=== PATIENT | female | born 1995 | race Caucasian/White ===

== ENCOUNTER 2018-05-27 12:44 | Emergency (ER) | payer BC, OTHER ==
[2018-05-27 13:09] VITALS: BP 126/88
--- NOTE | 2018-05-27 13:32 | UC ---
Respiratory Complaint HPI - HPI Summary HPI Summary: This is Sue jacob, documenting for attending Joseph Arriaga M.D. Pt is a 23 y/o F who presents to ED with a CC of HOLGUIN. HOLGUIN is located in the occipital region with radiation into the neck and is characterized as pressure. On triage, pain is severe ranked 8/10. Sx aggravated by movement and opening her mouth, alleviated by nothing. Notes back pain this morning which is now resolved and she suspected it was secondary to sleeping wrong. Additionally c/o chills and dizziness when she turns her head a certain way. Pt reports that she has been sick for about 9 days, with symptoms consisting of a sore throat, rhinorrhea, cough, and nasal congestion. Denies abdominal pain, dysuria. Her children were ill for a few days, though they are now improved. - History of Current Complaint Chief Complaint: UCRespiratory Stated Complaint: CONGESTED,DIZZY Time Seen by Provider: 05/27/18 13:23 Hx Obtained From: Patient Hx Last Menstrual Period: now Onset/Duration: Lasting Days - 9 days, Still Present Severity Currently: Severe Pain Intensity: 8 Pain Scale Used: 0-10 Numeric - Allergies/Home Medications Allergies/Adverse Reactions: Allergies Allergy/AdvReac Type Severity Reaction Status Date / Time azithromycin Allergy Swelling Verified 05/27/18 13:10 tape Allergy Itching Uncoded 05/27/18 13:10 Home Medications: Home Medications busPIRone TAB* [Buspar TAB*] 1 tab PO BID 05/27/18 [History Confirmed 05/27/18] PMH/Surg Hx/FS Hx/Imm Hx Respiratory History: Asthma Psychological History: Anxiety - Surgical History Surgical History: None - Social History Alcohol Use: Occasionally Substance Use Type: None Smoking Status (MU): Never Smoked Tobacco Have You Smoked in the Last Year: No - Immunization History Most Recent Influenza Vaccination: 10/25 Most Recent Tetanus Shot: 11/2012 Most Recent Pneumonia Vaccination: none Physical Exam Vital Signs: Initial Vital Signs Temp 98.8 F 05/27/18 13:06 Pulse 93 05/27/18 13:06 Resp 18 05/27/18 13:06 BP 126/88 05/27/18 13:06 Pulse Ox 100 05/27/18 13:06 Diagnostic Evaluation - Laboratory O2 Sat by Pulse Oximetry: 100 Discharge - Discharge Plan Referrals: Caitlin Timmons PA [Primary Care Provider] -
--- NOTE | 2018-05-27 13:34 | UC ---
Headache HPI - HPI Summary HPI Summary: This is Sue jacob, documenting for attending Joseph Arriaga M.D. Pt is a 23 y/o F who presents to ED with a CC of HOLGUIN for 4 days. HOLGUIN is located in the occipital region with radiation into the neck and is characterized as pressure. On triage, pain is severe ranked 8/10. Sx aggravated by movement and opening her mouth, alleviated by nothing. Notes back pain this morning which is now resolved and she suspected it was secondary to sleeping wrong. Additionally c/o chills and dizziness when she turns her head a certain way as well as fever , though none today. Pt reports that she has been sick for about 9 days, with symptoms consisting of a sore throat, rhinorrhea, cough, and nasal congestion. Denies abdominal pain, dysuria. Her children were ill for a few days, though they are now improved. - History Of Current Complaint Chief Complaint: UCRespiratory Stated Complaint: CONGESTED,DIZZY Time Seen by Provider: 05/27/18 13:23 Hx Obtained From: Patient Hx Last Menstrual Period: now Onset/Duration: Lasting Days - 4 days, Still Present Onset Of Symptoms: Still Present Currently Pain Is: Severe Pain Intensity: 8 Pain Scale Used: 0-10 Numeric Character: Pressure Location of Headache: Occipital Aggravating Factor(s): Other - Movement, opening mouth Allevating Factor(s): Nothing Associated Signs And Symptoms: Positive: Dizziness, Fever, Neck Pain - Allergies/Home Medications Allergies/Adverse Reactions: Allergies Allergy/AdvReac Type Severity Reaction Status Date / Time azithromycin Allergy Swelling Verified 05/27/18 13:10 tape Allergy Itching Uncoded 05/27/18 13:10 Home Medications: Home Medications busPIRone TAB* [Buspar TAB*] 1 tab PO BID 05/27/18 [History Confirmed 05/27/18] PMH/Surg Hx/FS Hx/Imm Hx Respiratory History: Asthma Psychological History: Anxiety - Surgical History Surgical History: None - Family History Known Family History: Positive: Other - DVT, Leukemia - Social History Alcohol Use: Occasionally Substance Use Type: None Smoking Status (MU): Never Smoked Tobacco Have You Smoked in the Last Year: No - Immunization History Most Recent Influenza Vaccination: 10/25 Most Recent Tetanus Shot: 11/2012 Most Recent Pneumonia Vaccination: none Review of Systems Constitutional: Fever, Chills Skin: Negative Eyes: Negative ENT: Sore Throat, Nasal Discharge, Sinus Congestion Respiratory: Cough Cardiovascular: Negative Gastrointestinal: Negative Genitourinary: Negative Motor: Negative Neurovascular: Negative Musculoskeletal: Other: - Back pain Neurological: Headache, Other - Dizziness Psychological: Negative All Other Systems Reviewed And Are Negative: Yes - Comments Additional Review of Systems Comments: NEGATIVE: Abdominal pain, dysuria Physical Exam - Summary Physical Exam Summary: General: mildly ill-appearing, mild to moderate pain distress Skin: warm, color reflects adequate perfusion, dry Head: normal Eyes: EOMI, STACIA ENT: TM normal bilaterally, posterior pharynx is mildly erythematous with no sores, has a cold sore on her upper lip Neck: rigid, nontender Respiratory: CTA, breath sounds present Cardiovascular: RRR Musculoskeletal: normal, strength/ROM intact Neurological: sensory/motor intact, A&O x3 Psychological: affect/mood appropriate Triage Information Reviewed: Yes Vital Signs: Initial Vital Signs Temp 98.8 F 05/27/18 13:06 Pulse 93 05/27/18 13:06 Resp 18 05/27/18 13:06 BP 126/88 05/27/18 13:06 Pulse Ox 100 05/27/18 13:06 Vital Signs Reviewed: Yes Headache Course/Dx - Course Course Of Treatment: Medications reviewed. Allergies noted. RECOMMENDED FURTHER EVALUATION IN THE EMERGENCY DEPARTMENT NOW PRIMARILY DUE TO THE POTENTIAL FOR MENINGITIS. - Differential Dx/Diagnosis Provider Diagnoses: HEADACHE. STIFF NECK. RECENT FEVERS Discharge - Sign-Out/Discharge Documenting (check all that apply): Patient Departure - Discharge - Discharge Plan Condition: Stable Disposition: HOME-RECOMMEND TO ED Patient Education Materials: Fever in Adults (ED), Acute Headache (ED), Neck Pain (ED) Referrals: Caitlin Timmons PA [Primary Care Provider] - Additional Instructions: GO DIRECTLY TO THE EMERGENCY DEPARTMENT FOR FURTHER EVALUATION OF YOUR HEADACHE , NECK PAIN AND FEVERS. - Billing Disposition and Condition Condition: STABLE Disposition: Home-Recommend to ED
== END 2018-05-27 13:39 | disposition home health service (06) ==
LOC: UCEAST 12:44
DX: R51 Headache (principal); F41.9 Anxiety disorder, unspecified; M43.6 Torticollis; R50.9 Fever, unspecified; J45.909 Unspecified asthma, uncomplicated; Z91.048 Other nonmedicinal substance allergy status; Z88.1 Allergy status to other antibiotic agents
CPT/HCPCS: 99212; G0463

== ENCOUNTER 2018-05-27 14:49 | Emergency (ER) | payer BC ==
[2018-05-27] MEDS ORDERED: NS 0.9% 1000 ML* 1,000 ML IV ONE (15:20)
[2018-05-27] MEDS ORDERED: diPHENhydraMINE IV* 50 MG/ML 1 ml VIAL (BENADRYL) IV ONE (15:20)
[2018-05-27] MEDS ORDERED: Ketorolac INJ* 30 MG/ML 1 ML VIAL IV PUSH ONE (15:20)
[2018-05-27] MEDS ORDERED: Metoclopramide IV* 5 MG/ML 2 ML VIAL IV ONE (15:20)
--- NOTE | 2018-05-27 15:57 | ED ---
Complex/Multi-Sys Presentation - HPI Summary HPI Summary: This is Johnnie jcaob documenting for attending Dr. James Yepez MD. This patient is a 23 year old F presenting to [facility] accompanied by her family c/ o a general illness that began 9 days ago. The patient rates the pain 9/10 in severity. Patient reports head pressure, neck pain, back pain, fever, nasal congestion, and dizziness/blurry vision with head movement. Patient denies urinary sx, ABD pain, n/v/d, cough, and sore throat. Pt is currently menstruating - History Of Current Complaint Chief Complaint: EDGeneral Time Seen by Provider: 05/27/18 15:19 Hx Obtained From: Patient Onset/Duration: Lasting Days, Still Present Timing: Constant Severity Currently: Mild Severity Initially: Moderate Associated Signs And Symptoms: Positive: Other - head pressure, neck pain, back pain, fever, nasal congestion, and dizziness/blurry vision with head movement. - Allergies/Home Medications Allergies/Adverse Reactions: Allergies Allergy/AdvReac Type Severity Reaction Status Date / Time azithromycin Allergy Swelling Verified 05/27/18 15:10 tape Allergy Itching Uncoded 05/27/18 15:10 Home Medications: Home Medications Norgestimate-Ethinyl Estradiol [Tri-Sprintec Tablet] 1 tab PO DAILY 05/27/18 [ History Confirmed 05/27/18] PMH/Surg Hx/FS Hx/Imm Hx Endocrine/Hematology History: Denies: Hx Diabetes, Hx Systemic Lupus Erythematosus, Hx Thyroid Disease, Hx Coagulopothy Cardiovascular History: Denies: Hx Hypertension Respiratory History: Reports: Hx Asthma Denies: Hx Chronic Obstructive Pulmonary Disease (COPD) GI History: Denies: Hx Ulcer Neurological History: Reports: Hx Headaches Denies: Hx CVA, Hx Developmental Delay, Hx Transient Ischemic Attacks (TIA), Hx CVP Infectious Disease History: No Infectious Disease History: Denies: Hx Hepatitis, Hx Human Immunodeficiency Virus (HIV), History Other Infectious Disease, Traveled Outside the [place] in Last 30 Days - Family History Known Family History: Positive: Diabetes, Other - DVT, Leukemia - Social History Occupation: Employed Full-time Lives: With Family Alcohol Use: Occasionally Substance Use Type: Reports: None Smoking Status (MU): Never Smoked Tobacco Have You Smoked in the Last Year: No Review of Systems Positive: Fever Positive: Blurred Vision ENT: Other - congestion Negative: Sore Throat Negative: Cough Negative: Abdominal Pain, Vomiting, Diarrhea, Nausea Positive: no symptoms reported Musculoskeletal: Other - neck pain and back pain Neurological: Other - dizziness Positive: Headache - pressure All Other Systems Reviewed And Are Negative: Yes Physical Exam - Summary Physical Exam Summary: Appearance: Well appearing, no pain distress Skin: cold sore on the left upper lip Head/face: normal Eyes: EOMI, STACIA ENT: normal Neck: no nuchal rigidity, there are some meningeal signs, no adenopathy Respiratory: CTA, breath sounds present Cardiovascular: tachycardia but regular, pulses symmetrical Abdomen: non-tender, soft Bowel Sounds: present Musculoskeletal: no nuchal rigidity, there are some meningeal signs Neuro: normal, sensory motor intact, A&Ox3 Triage Information Reviewed: Yes Vital Signs On Initial Exam: Initial Vitals Temp Pulse Resp BP Pulse Ox 100.0 F 103 20 134/87 93 05/27/18 14:50 05/27/18 14:50 05/27/18 14:50 05/27/18 14:50 05/27/18 14:50 Vital Signs Reviewed: Yes Procedures - Lumbar Puncture Lumbosacral Joint Position: Sitting Aseptic Technique: Lidocaine Anesthesia Used: 1.0% Lido - 2 cc's Spinal Needle Used: 22 Gauge Lumbar Puncture Note: I entered around L4-L5 on the first attempt and 5ml of clear fluid was collected. Sterile technique was used. Diagnostics - Vital Signs Vital Signs Temp Pulse Resp BP Pulse Ox 05/27/18 15:10 98.6 F 105 18 130/85 99 05/27/18 14:50 100.0 F 103 20 134/87 93 - Laboratory Result Diagrams: 05/27/18 16:01 05/27/18 16:01 Lab Statement: Any lab studies that have been ordered have been reviewed, and results considered in the medical decision making process. Re-Evaluation - Re-Evaluation First Eval Re-Evaluation Time: 17:58 Change: Improved Comment: The patient is requesting food and drink. Complex Multi-Symp Course/Dx Course Of Treatment: Showed low-grade fevers over several days now developing into neck discomfort and posterior headache. WBC is slightly elevated. Her laboratories and urinalysis are otherwise unremarkable. She is well appearing despite her neck symptoms. A lumbar puncture was performed after the patient was consented. The fluid returned clear with a champagne tap Indicating 0 white blood cells and 0 red cells. I'm serologies were added. She has no throat or sinus symptoms. Her flu testing was negative. There have been several other patients with similar type presentations. She does work here in the hospital. She has no cough, shortness of breath or crackles on exam. Her abdomen is soft and benign. She has no rash or lesions. We will treat her symptomatically and have her follow up closely with her primary care physician. Off work for 2 days. - Diagnoses Differential Diagnoses/HQI/PQRI: Metabolic Abnormality, Sepsis, Urinary Tract Infection, Other - Lyme disease Provider Diagnoses: Viral syndrome, Neck pain, Headache - Critical Care Time Critical Care Time: 30-74 min - CCT is EXCLUSIVE of separately billable procedures. Discharge - Sign-Out/Discharge Documenting (check all that apply): Patient Departure - Discharge Plan Condition: Improved Disposition: HOME Prescriptions: Naproxen [Naprosyn 500 mg tab] 500 mg PO BID PRN #10 tablet PRN Reason: Pain Promethazine TAB* [Phenergan Tab*] 25 mg PO Q6H PRN #20 tab PRN Reason: headache/nausea Patient Education Materials: Viral Syndrome (ED) Forms: *Work Release Referrals: Caitlin Timmons PA [Primary Care Provider] - Additional Instructions: Stay well-hydrated. Tylenol, or prescribed Naprosyn for headache/fever. Return with persistent fevers, shortness of breath, vomiting, new symptoms, worse or other concerns. Call your doctor first thing in the morning to follow- up. - Billing Disposition and Condition Condition: IMPROVED Disposition: Home
[2018-05-27 16:22] LABS: ABS Basophils 0 10^3/ul (0-0.2); ABS Eosinophils 0 10^3/ul (0-0.6); ABS Lymphocytes 2.1 10^3/ul (1.0-4.8); ABS Monocytes 0.8 10^3/ul (0-0.8); ABS Neutrophils 9.8 10^3/ul (1.5-7.7); ABS Nucleated RBC 0 10^3/ul; Eosinophil % 0.4 % (0-6); Hematocrit 41 % (35-47); Hemoglobin 13.8 g/dl (12.0-16.0); Lymphocyte % 16.6 % (25-47); Mean Corpuscular HGB Conc 34 g/dl (31-36); Mean Corpuscular Hemoglobin 29 pg (27-31); Mean Corpuscular Volume 84 fL (80-97); Mean Platelet Volume 7.1 um3 (7.4-10.4); Nucleated Red Blood Cells % 0.1; Platelet Count 367 10^3/ul (150-450); Red Blood Count 4.82 10^6/ul (4.00-5.40); Red Cell Distribution Width 13 % (10.5-15); White Blood Count 12.7 10^3/ul (3.5-10.8)
[2018-05-27] MEDS ORDERED: Lidocaine 1% INJ* 10 MG/ML 30 ML SDV ONE (16:22)
[2018-05-27 16:27] LABS: EGFR Non-African American 94.9 (>60)
[2018-05-27 16:51] LABS: Urine Appearance Cloudy; Urine Blood Negative (Negative); Urine Color Yellow; Urine Ketones 1+ (Negative); Urine Protein Negative (Negative); Urine Specific Gravity 1.021 (1.010-1.030); Urine Urobilinogen Negative (Negative)
[2018-05-27 17:02] LABS: Body Fluid Source Cerebral Spinal
[2018-05-27 19:23] VITALS: BP 114/74
[2018-05-29 19:42] LABS: Lyme Disease Source CSF
== END 2018-05-27 19:23 | disposition home or self-care (01) ==
LOC: ED 14:49
DX: B34.9 Viral infection, unspecified (principal); M54.2 Cervicalgia; R51 Headache; Z88.3 Allergy status to other anti-infective agents
CPT/HCPCS: 36415; 62270; 80048; 81003; 82945; 84157; 85025; 86618; 87070; 87205; 87476; 87529; 87798; 89051; 96361; 96374; 96375; 99283; J1200; J1885; J2765

== ENCOUNTER 2018-11-04 16:14 | Emergency (ER) | payer BC ==
--- NOTE | 2018-11-04 16:40 | ED ---
- HPI Summary HPI Summary: This is a young woman who is here for a concern over an ectopic . She had her last menstrual period starting September 13, so would be 7 weeks . [facility] went to [facility] on to plan for a therapeutic . As part of that workup she underwent an ultrasound which showed only a question of a possible gestational sac. Her hCG level was nearly 7000. Because of the elevated hCG level without an obvious intrauterine the patient was referred here for a follow-up ultrasound and hCG level. The patient denies any pain or bleeding, other than some intermittent cramps. She has no prior history of ectopic , no history of significant gynecologic infections, and her past surgical history is limited to a section. - History of Current Complaint Chief Complaint: EDOBProblems Stated Complaint: ABNORMAL LABS Time Seen by Provider: 11/04/18 16:32 Pain Intensity: 0 - Assessment Hx Now: Yes - 18 weeks SAB: 0 IEA: 0 - Additional Pertinent History Maternal Blood Type and Rh: O Positive - Allergies/Home Medications Allergies/Adverse Reactions: Allergies Allergy/AdvReac Type Severity Reaction Status Date / Time adhesive tape Allergy Rash Verified 11/04/18 16:21 azithromycin Allergy Swelling Verified 11/04/18 16:21 PMH/Surg Hx/FS Hx/Imm Hx Endocrine/Hematology History: Denies: Hx Diabetes, Hx Systemic Lupus Erythematosus, Hx Thyroid Disease Cardiovascular History: Denies: Hx Hypertension Respiratory History: Reports: Hx Asthma Denies: Hx Chronic Obstructive Pulmonary Disease (COPD) GI History: Denies: Hx Ulcer Neurological History: Reports: Hx Headaches Denies: Hx CVA, Hx Developmental Delay, Hx Transient Ischemic Attacks (TIA) Infectious Disease History: No Infectious Disease History: Denies: Hx Hepatitis, Hx Human Immunodeficiency Virus (HIV), History Other Infectious Disease, Traveled Outside the [place] in Last 30 Days - Family History Known Family History: Positive: Diabetes, Other - DVT, Leukemia - Social History Alcohol Use: Occasionally Substance Use Type: Reports: None Smoking Status (MU): Never Smoked Tobacco Have You Smoked in the Last Year: No Review of Systems Negative: Fever, Chills Negative: Palpitations Negative: Shortness Of Breath Negative: Abdominal Pain, Vomiting Negative: Headache Negative: Anxious, Depressed All Other Systems Reviewed And Are Negative: Yes Physical Exam - Summary Physical Exam Summary: General: This is a well-developed, well- nourished young woman lying on the stretcher in no apparent distress. The patient does not appear ill or toxic. Neck: No obvious swellings. Lungs: There are no signs of respiratory distress. Coronary: Peripheral perfusion is good. Abdomen: The abdomen appears normal and is nondistended. Genitourinary: Deferred Back: Good range of motion is observed. Extremities: Good range of motion was observed in all 4 extremities. There is no sign of any trauma to the extremities. Neurologic: The patient is awake and alert, speech is fluent and conversation is appropriate. Psychiatric: The patients affect is felt to be normal and appropriate. There is no sign of any hallucinations or delusions, or any other signs of psychosis. Diagnostics - Vital Signs Vital Signs Temp Pulse Resp BP Pulse Ox 11/04/18 16:18 36.6 C 61 16 128/74 96 - Laboratory Result Diagrams: 11/04/18 16:48 11/04/18 16:48 Lab Statement: Any lab studies that have been ordered have been reviewed, and results considered in the medical decision making process. Course/Dx - Diagnoses Provider Diagnoses: Discharge - Sign-Out/Discharge Documenting (check all that apply): Patient Departure - Discharge Plan Condition: Good Disposition: HOME Patient Education Materials: (ED) Forms: *Work Release Referrals: Caitlin Timmons PA [Primary Care Provider] - Additional Instructions: Your US showed an intrauterine , though it is still too early to see a heartbeat or other detail. The blood test is rising as one - Billing Disposition and Condition Condition: GOOD Disposition: Home - Attestation Statements Document Initiated by Scribe: No
[2018-11-04 16:54] LABS: ABS Basophils 0 10^3/ul (0-0.2); ABS Eosinophils 0.1 10^3/ul (0-0.6); ABS Lymphocytes 1.9 10^3/ul (1.0-4.8); ABS Monocytes 0.7 10^3/ul (0-0.8); ABS Neutrophils 4.9 10^3/ul (1.5-7.7); ABS Nucleated RBC 0 10^3/ul; Eosinophil % 0.7 %; Hematocrit 42 % (35-47); Lymphocyte % 24.9 %; Mean Corpuscular HGB Conc 34 g/dl (31-36); Mean Corpuscular Hemoglobin 29 pg (27-31); Mean Corpuscular Volume 86 fL (80-97); Mean Platelet Volume 6.8 fL (7.4-10.4); Nucleated Red Blood Cells % 0; Platelet Count 367 10^3/ul (150-450); Red Blood Count 4.85 10^6/ul (4.00-5.40); Red Cell Distribution Width 14 % (10.5-15); White Blood Count 7.6 10^3/ul (3.5-10.8)
[2018-11-04 17:11] LABS: Albumin 4.4 g/dL (3.2-5.2); Albumin/Globulin Ratio 1.5 (1-3); BUN/Creatinine Ratio 17.8 (8-20); Calcium 9.4 mg/dL (8.6-10.3); EGFR Non-African American 97.9 (>60); Globulin 2.9 g/dL (2-4); Potassium 4.1 mmol/L (3.5-5.0); Total Bilirubin 0.5 mg/dL (0.2-1.0); Total Protein 7.3 g/dL (6.4-8.9)
[2018-11-04 21:07] VITALS: BP 120/69
== END 2018-11-04 21:07 | disposition home or self-care (01) ==
LOC: ED 16:14
DX: Z34.00 Encounter for supervision of normal first pregnancy, unspecified trimester (principal)
CPT/HCPCS: 36415; 76817; 80053; 84702; 85025; 99282

== ENCOUNTER 2019-02-23 11:09 | Day surgery (SDC) | payer BC ==
[2019-02-23] MEDS ORDERED: Ketorolac INJ* 30 MG/ML 1 ML VIAL IV PUSH ONE (11:48)
[2019-02-23] MEDS ORDERED: NS 0.9% 1000 ML** 1,000 ML IV ONE (11:48)
[2019-02-23] MEDS ORDERED: Ondansetron INJ* 2 MG/ML VIAL IV ONE ×2 (11:48→14:31)
[2019-02-23 12:15] LABS: ABS Basophils 0 10^3/ul (0-0.2); ABS Eosinophils 0 10^3/ul (0-0.6); ABS Lymphocytes 2.1 10^3/ul (1.0-4.8); ABS Monocytes 1.1 10^3/ul (0-0.8); ABS Neutrophils 8.8 10^3/ul (1.5-7.7); ABS Nucleated RBC 0 10^3/ul; Eosinophil % 0.2 %; Hematocrit 41 % (33-41); Hemoglobin 13.7 g/dL (12.0-16.0); Lymphocyte % 17.3 %; Mean Corpuscular HGB Conc 34 g/dL (31-36); Mean Corpuscular Hemoglobin 29 pg (27-31); Mean Corpuscular Volume 86 fL (80-97); Mean Platelet Volume 6.9 fL (7.4-10.4); Nucleated Red Blood Cells % 0; Platelet Count 278 10^3/uL (150-450); Red Blood Count 4.74 10^6 /uL (3.70-4.87); Red Cell Distribution Width 13 % (10.5-15); White Blood Count 12.1 10^3/uL (3.5-10.8)
--- NOTE | 2019-02-23 12:33 | ED ---
Abdominal Pain/Female - HPI Summary HPI Summary: Patient is a 23-year-old female with no significant PMH presenting to the ED with diffuse abdominal pain wrapping around to the back, nausea and vomiting. Denies any diarrhea or constipation. Denies any fevers, sweats, chills. Patient currently having IUD and denies any menses. Denies any urinary symptoms. No history of kidney stones. She states she has never had this pain before. Pain is aching, intermittent and diffuse. Symptoms are aggravated with nothing and alleviated by nothing. She has not tried nfoc-gnu-defilct medications for relief. - History of Current Complaint Chief Complaint: EDAbdPain Stated Complaint: PAIN FROM BREAST TO PELVIS PER PT Time Seen by Provider: 02/23/19 11:34 Hx Obtained From: Patient Hx Last Menstrual Period: now ?: No Onset/Duration: Sudden Onset Timing: Constant Severity Initially: Moderate Severity Currently: Moderate Pain Intensity: 8 Pain Scale Used: 0-10 Numeric Location: Discrete At: RLQ Radiates: No Character: Sharp Aggravating Factor(s): Nothing Alleviating Factor(s): Nothing Associated Signs and Symptoms: Positive: Negative Allergies/Adverse Reactions: Allergies Allergy/AdvReac Type Severity Reaction Status Date / Time adhesive tape Allergy Rash Verified 02/23/19 11:11 azithromycin Allergy Swelling Verified 02/23/19 11:11 Home Medications: Home Medications Lexapro 10 mg 10 mg PO DAILY 02/23/19 [History Confirmed 02/23/19] PMH/Surg Hx/FS Hx/Imm Hx Previously Healthy: Yes Endocrine/Hematology History: Denies: Hx Diabetes, Hx Systemic Lupus Erythematosus, Hx Thyroid Disease Cardiovascular History: Denies: Hx Hypertension Respiratory History: Reports: Hx Asthma Denies: Hx Chronic Obstructive Pulmonary Disease (COPD) GI History: Denies: Hx Ulcer Neurological History: Reports: Hx Headaches Denies: Hx CVA, Hx Developmental Delay, Hx Transient Ischemic Attacks (TIA) - Immunization History Hx Pertussis Vaccination: No Immunizations Up to Date: Yes Infectious Disease History: No Infectious Disease History: Denies: Hx Hepatitis, Hx Human Immunodeficiency Virus (HIV), History Other Infectious Disease, Traveled Outside the [place] in Last 30 Days - Family History Known Family History: Positive: Diabetes, Other - DVT, Leukemia - Social History Occupation: Employed Full-time, Student Lives: With Family Alcohol Use: Occasionally Hx Substance Use: No Substance Use Type: Reports: None Smoking Status (MU): Never Smoked Tobacco Have You Smoked in the Last Year: No Review of Systems Constitutional: Negative Negative: Fever, Chills, Fatigue, Skin Diaphoresis Negative: Palpitations, Chest Pain Negative: Shortness Of Breath, Cough Positive: Abdominal Pain, Vomiting, Nausea. Negative: Diarrhea Genitourinary: Negative Positive: no symptoms reported, see HPI Negative: Arthralgia, Myalgia Skin: Negative Neurological: Negative All Other Systems Reviewed And Are Negative: Yes Physical Exam Triage Information Reviewed: Yes Vital Signs On Initial Exam: Initial Vitals Temp Pulse Resp BP Pulse Ox 98.8 F 97 16 138/87 99 02/23/19 11:13 02/23/19 11:13 02/23/19 11:13 02/23/19 11:13 02/23/19 11:13 Vital Signs Reviewed: Yes Appearance: Positive: Well-Appearing, Well-Nourished Skin: Positive: Warm, Skin Color Reflects Adequate Perfusion Head/Face: Positive: Normal Head/Face Inspection Eyes: Positive: EOMI, Conjunctiva Clear Neck: Positive: Supple, Nontender, No Lymphadenopathy Respiratory/Lung Sounds: Positive: Clear to Auscultation, Breath Sounds Present Cardiovascular: Positive: RRR, Pulses are Symmetrical in both Upper and Lower Extremities Abdomen Description: Positive: Other: - Tenderness to the bilateral lower quadrants Bowel Sounds: Positive: Present Musculoskeletal: Positive: Normal, Strength/ROM Intact Neurological: Positive: Sensory/Motor Intact, Alert, Oriented to Person Place, Time Psychiatric: Positive: Normal, Affect/Mood Appropriate AVPU Assessment: Alert Diagnostics - Vital Signs Vital Signs Temp Pulse Resp BP Pulse Ox 02/23/19 11:13 98.8 F 97 16 138/87 99 - Laboratory Lab Results: Lab Results 02/23/19 Range/Units 12:06 WBC 12.1 H (3.5-10.8) 10^3/uL RBC 4.74 (3.70-4.87) 10^6 /uL Hgb 13.7 (12.0-16.0) g/dL Hct 41 (33-41) % MCV 86 (80-97) fL MCH 29 (27-31) pg MCHC 34 (31-36) g/dL RDW 13 (10.5-15) % Plt Count 278 (150-450) 10^3/uL MPV 6.9 L (7.4-10.4) fL Neut % (Auto) 73.2 % Lymph % (Auto) 17.3 % [place] % (Auto) 9.0 % Eos % (Auto) 0.2 % Baso % (Auto) 0.3 % Absolute Neuts (auto) 8.8 H (1.5-7.7) 10^3/ul Absolute Lymphs (auto) 2.1 (1.0-4.8) 10^3/ul Absolute Monos (auto) 1.1 H (0-0.8) 10^3/ul Absolute Eos (auto) 0 (0-0.6) 10^3/ul Absolute Basos (auto) 0 (0-0.2) 10^3/ul Absolute Nucleated RBC 0 10^3/ul Nucleated RBC % 0 Result Diagrams: 02/23/19 12:06 02/23/19 12:06 Lab Statement: Any lab studies that have been ordered have been reviewed, and results considered in the medical decision making process. Abdominal Pain Fem Course/Dx - Course Course Of Treatment: During the questioning, the patient is evaluated for RLQ pain. She is also endorses nausea and vomiting. Labs obtained which shows slightly elevated white count and slightly elevated CRP. Subsequently a CT of the abdomen and pelvis obtained. This shows acute appendicitis. Discussed case with Dr. Klein who will take patient to the OR. While in the ER course, patient is given morphine and Zofran with good relief. - Diagnoses Provider Diagnoses: Appendicitis Discharge - Sign-Out/Discharge Documenting (check all that apply): Patient Departure All imaging exams completed and their final reports reviewed: No Patient Received Moderate/Deep Sedation with Procedure: Yes - Discharge Plan Condition: Good Disposition: ADMITTED TO [facility] - Billing Disposition and Condition Condition: GOOD Disposition: Admitted to [facility]
[2019-02-23 12:34] LABS: ALT 11 U/L (7-52); AST 14 U/L (13-39); Albumin 4.2 g/dL (3.2-5.2); Albumin/Globulin Ratio 1.6 (1-3); Alkaline Phosphatase 75 U/L (34-104); Anion Gap 5 mmol/L (2-11); Blood Urea Nitrogen 11 mg/dL (6-24); C Reactive Protein 9.78 mg/L (<8.01); CO2 Carbon Dioxide 25 mmol/L (22-32); Calcium 9.1 mg/dL (8.6-10.3); Chloride 106 mmol/L (101-111); EGFR African American 145.8 (>60); EGFR Non-African American 120.5 (>60); Globulin 2.7 g/dL (2-4); Glucose 97 mg/dL (70-100); Magnesium 1.9 mg/dL (1.9-2.7); Potassium 3.7 mmol/L (3.5-5.0); Sodium 136 mmol/L (135-145); Total Protein 6.9 g/dL (6.4-8.9)
[2019-02-23 12:39] LABS: HCG Pregnancy < 0.60 mIU/mL
[2019-02-23] MEDS ORDERED: Morphine 4 MG/ML VIAL (1 ml) 4 MG/ML VIAL IV ONE (13:14)
[2019-02-23 13:29] LABS: Urine Appearance Clear; Urine Bilirubin Negative (Negative); Urine Blood Negative (Negative); Urine Color Yellow; Urine Glucose Negative (Negative); Urine Ketones Trace (Negative); Urine Nitrite Negative (Negative); Urine Protein Negative (Negative); Urine Specific Gravity 1.013 (1.010-1.030); Urine Urobilinogen Negative (Negative)
[2019-02-23] MEDS ORDERED: Iohexol 300* (CONTRAST) 10 ML SDV IV ONE (13:34)
[2019-02-23] MEDS ORDERED: ceFOXitin 2 GM IVPREMIX* 2 GM/50 ML BAG ONE (15:49)
[2019-02-23] MEDS ORDERED: Bupivacaine 0.25% W/EPI* 10 ML SDV ONE (16:05)
[2019-02-23] MEDS ORDERED: KETAMINE HCL* 50 MG/ML 10 ML VIAL ONE (16:45)
[2019-02-23] MEDS ORDERED: Midazolam* 1 MG/ML 2 ML VIAL (2 MG) ONE (16:45)
[2019-02-23] MEDS ORDERED: Atracurium* 10 MG/ML 10 ML VIAL ONE (16:45)
[2019-02-23] MEDS ORDERED: fentaNYL* 50 MCG/ML 2 ML VIAL (100 MCG VIAL) ONE ×2 (16:45→17:42)
--- NOTE | 2019-02-23 17:04 | HP ---
CC: Dr. Klein; BEATRICE Barros HISTORY AND PHYSICAL: DATE OF ADMISSION: 02/23/19 CHIEF COMPLAINT: Abdominal pain. HISTORY OF PRESENT ILLNESS: Ms. Nazario is a 23-year-old female who comes in with about 24 hours of ab dominal pain. Yesterday, she was feeling poorly and felt like she had cramping and bloating around t he abdomen and then it got much more intense in the evening. She had trouble sleeping overnight and this morning, it was very intense in the lower abdomen, worse on the right than on the left. No naus ea and vomiting, may be queasiness, bloating, fullness feeling. She thinks maybe she is feeling a li ttle feverish, but did not have a temperature at home. She has not had any change in stool or urine. She is otherwise reasonably fit, healthy and active. PAST MEDICAL HISTORY: Reveals section, she has a 2-year-old and a 5-year- old at home. She is a nonsmoker. 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 She is not currently . MEDICATIONS: Lexapro 10 mg p.o. daily. ALLERGIES: AZITHROMYCIN. FAMILY HISTORY: Benign. No bleeding tendencies or anesthesia reactions. REVIEW OF SYSTEMS: No chest pain, heart pain, anginal pain, or other cardiac disease. No pulmonary disease. No hepatitis, jaundice or other hepatobiliary disease. No ulcer disease. No Crohn's disea se. No other GI disease. She has an IUD. She had the previous as noted above. She has n o neuromuscular issues. She does have some anxiety issues. PHYSICAL EXAMINATION GENERAL: She is a well-developed, well-nourished female consistent with stated age. She appears kin d of flushed and clearly not feeling well. VITAL SIGNS: Show temperature 99.4, blood pressure 113/63, pulse 76 and regular, respirations 15 and unlabored, O2 saturation 99% on room air. HEENT: Head and neck is flushed and looking sort of ill. NECK: Supple without any adenopathy. LUNGS: Breathing is easy and unlabored. No abnormal sounds. HEART: Regular, not tachycardic. ABDOMEN: Soft and exquisitely tender in the lower abdomen, worse on the right than on the left. The re was Rovsing sign, percussion tenderness, calf tenderness and right lower quadrant rebound tenderne ss. She has a well-healed scar consistent with previous section. EXTREMITIES: Well perfused and without edema. DIAGNOSTIC STUDIES/LAB DATA: Laboratory studies show an elevated white blood count of 12,000. Elec trolytes are normal. CRP is mildly elevated. Beta-hCG is normal. CT scan of the abdomen is consiste nt with early acute appendicitis. IMPRESSION AND PLAN: A 23-year-old female with early acute appendicitis. I discussed this with her and I recommend laparoscopic appendectomy. She understands the procedure, the rationale, the risks and expected recovery and would like to proceed in the fashion outlined. We will do so as soon as the operative schedule permits. [id number]/[facility] #: [id number]
[2019-02-23] MEDS ORDERED: Propofol* 10 MG/ML 20 ML BTL ONE (17:13)
[2019-02-23] MEDS ORDERED: Neostigmine Methylsulfate* 1 MG/ML 10 ML VIAL (1 mg/ml) ONE (17:13)
[2019-02-23] MEDS ORDERED: Ketorolac INJ* 30 MG/ML 1 ML VIAL ONE ×2 (17:13→17:58)
[2019-02-23] MEDS ORDERED: Lidocaine 2% PF * 5 ML VIAL ONE (17:13)
[2019-02-23] MEDS ORDERED: Dexamethasone IV* 4 MG/ML 1 ML (4 MG) ONE (17:13)
[2019-02-23] MEDS ORDERED: Ondansetron INJ* 2 MG/ML VIAL ONE (17:13)
[2019-02-23] MEDS ORDERED: Glycopyrrolate IV* 0.2 MG/ML 1 ML VIAL ONE (17:13)
[2019-02-23] MEDS ORDERED: PROCHLORPERAZINE INJ 5 MG/ML 2 ML VIAL IV PRN (17:36)
[2019-02-23] MEDS ORDERED: oxyCODONE TAB* 5 MG TAB PO PRN (17:36)
[2019-02-23] MEDS ORDERED: Acetaminophen IV 1GM/100ML * 1,000 MG/100 ML VIAL IVPB ONE (17:36)
[2019-02-23] MEDS ORDERED: Morphine 4 MG/ML VIAL (1 ml) 4 MG/ML VIAL IV PRN (17:36)
[2019-02-23] MEDS ORDERED: Naloxone* 0.4 MG/ML 1 ML VIAL IV PRN (17:36)
[2019-02-23] MEDS ORDERED: Scopolamine 1.5 mg* PATCH TRANSDERM PRN (17:36)
[2019-02-23] MEDS ORDERED: DiMENhydriNATE IV* 50 MG/ML VIAL IV PUSH PRN (17:36)
[2019-02-23] MEDS ORDERED: Acetaminophen IV 1GM/100ML * 100 ML ONE (17:37)
[2019-02-23] MEDS ORDERED: DiMENhydriNATE IV* 50 MG/ML VIAL ONE (17:37)
[2019-02-23] MEDS: fentaNYL* 50 MCG/ML 2 ML VIAL (100 MCG VIAL) IV PRN ×3 (17:42→17:51)
[2019-02-23] MEDS ORDERED: oxyCODONE TAB* 5 MG TAB ONE (18:17)
[2019-02-23 19:18] VITALS: BP 97/65
--- NOTE | 2019-02-23 19:56 | OP ---
CC: Dr. Klein; Anita Timmons OPERATIVE REPORT: DATE OF OPERATION: 02/23/19 DATE OF : 89 SURGEON: Bernardo Klein MD. WEAVER DOBBY LOOM: None. ANESTHESIOLOGIST: Dr. Ireland. ANESTHESIA: Local anesthesia. PRE-OP DIAGNOSIS: Acute appendicitis. POST-OP DIAGNOSIS: Acute appendicitis. OPERATIVE PROCEDURE: Laparoscopic appendectomy. COMPLICATIONS: No complications. DRAINS: No drains. PATHOLOGIC SPECIMEN: Appendix. COUNTS: Sponge and instrument counts correct. ESTIMATED BLOOD LOSS: 10 mL. DESCRIPTION OF PROCEDURE: The patient was supine on the operative table. After adequate intravenous sedation, general anesthetic, compression stockings, Alverto Hugger warmer and intravenous antibiotics, the abdomen was prepped with antiseptic, draped in a sterile fashion. Local infiltrative anesthesia was administered. A small umbilical incision was created. Blunt port cannula was placed. Insuffla tion was carried out with carbon dioxide. Additional cannulae, 5 mm left lower quadrant, left suprap ubic were placed through small stab wounds under direct vision. The appendix was acutely inflamed ov er the distal two-thirds. The base was not inflamed. There was no perforation, no purulence. The m esoappendix was divided with an EndoGIA stapler, hoffman cartridge; the base of the appendix with an End oGIA stapler, villarreal cartridge. The appendix was placed in retrieval bag and brought out through the bilical site. The operative field was examined. Hemostasis was excellent at the suture line. The ca nnulae were removed. Pneumoperitoneum allowed to escape. The umbilical fascia was closed with 0 Vicr yl, skin with 5-0 Vicryl, followed by Steri-Strips. She was awakened, extubated, and brought to [facility] in good condition. [id number]/[facility] #: [id number]
[2019-02-26] MEDS ORDERED: Scopolamine PATCH Remove* 1 NOTE MISC PATCH OFF ONE (17:37)
== END 2019-02-23 19:56 | disposition home or self-care (01) ==
LOC: ED 11:09 → OR 16:33
PROVIDERS: ATTEND Surgery
DX: K35.80 Unspecified acute appendicitis (principal); R10.31 Right lower quadrant pain; R11.2 Nausea with vomiting, unspecified; Z79.3 Long term (current) use of hormonal contraceptives
CPT/HCPCS: 36415; 74177; 80053; 81003; 83605; 83690; 83735; 84702; 85025; 86140; 88304; 99283; A9270-GY; C1776; J0694; J1100; J1240; J1885; J2250; J2270; J2405; J2704; J2710; J3010; Q9967

== ENCOUNTER 2019-02-24 18:03 | Emergency (ER) | payer BC ==
[2019-02-24] MEDS ORDERED: NS 0.9% 1000 ML** 1,000 ML IV ONE (18:17)
[2019-02-24] MEDS ORDERED: HYDROmorphone INJ1* 1 MG/ML SYRINGE IV SLOW PU ONE (18:17)
--- NOTE | 2019-02-24 18:19 | ED ---
Abdominal Pain/Female - HPI Summary HPI Summary: 23 year old F presenting to [facility] complains of increased abdominal pain, swelling, and redness s/p appendectomy yesterday. The patient rates the pain 9/ 10 in severity. Symptoms aggravated by nothing. Symptoms alleviated by nothing. Patient reports fever and nausea. Patient has treated pain with Percocet and Motrin at 17:00 today [employer] WORK[employer] without relief. - History of Current Complaint Chief Complaint: EDAbdPain Stated Complaint: SURGERY YESTERDAY,PAIN MEDS ARENT WORKING PER PT Time Seen by Provider: 02/24/19 18:11 Hx Obtained From: Patient Hx Last Menstrual Period: now Onset/Duration: Lasting Days - 1, Still Present Timing: Constant Severity Currently: Severe Pain Intensity: 9 Pain Scale Used: 0-10 Numeric Location: Diffuse Aggravating Factor(s): Nothing Alleviating Factor(s): Nothing Associated Signs and Symptoms: Positive: Fever, Nausea Allergies/Adverse Reactions: Allergies Allergy/AdvReac Type Severity Reaction Status Date / Time adhesive tape Allergy Rash Verified 02/23/19 11:11 azithromycin Allergy Swelling Verified 02/23/19 11:11 PMH/Surg Hx/FS Hx/Imm Hx Previously Healthy: No Endocrine/Hematology History: Denies: Hx Diabetes, Hx Systemic Lupus Erythematosus, Hx Thyroid Disease Cardiovascular History: Denies: Hx Hypertension Respiratory History: Reports: Hx Asthma Denies: Hx Chronic Obstructive Pulmonary Disease (COPD) GI History: Denies: Hx Ulcer History: Denies: Hx Renal Disease Neurological History: Reports: Hx Headaches Denies: Hx CVA, Hx Developmental Delay, Hx Transient Ischemic Attacks (TIA) - Surgical History Surgery Procedure, Year, and Place: Appendectomy 02/23/19 Infectious Disease History: No Infectious Disease History: Denies: Hx Hepatitis, Hx Human Immunodeficiency Virus (HIV), History Other Infectious Disease, Traveled Outside the [place] in Last 30 Days - Family History Known Family History: Positive: Diabetes, Other - DVT, Leukemia - Social History Alcohol Use: Occasionally Hx Substance Use: No Substance Use Type: Reports: None Hx Tobacco Use: No Smoking Status (MU): Never Smoked Tobacco Have You Smoked in the Last Year: No Review of Systems Positive: Fever Positive: Abdominal Pain, Nausea, Other - abdominal swelilng and redness All Other Systems Reviewed And Are Negative: Yes Physical Exam - Summary Physical Exam Summary: Appearance: The patient is well-nourished in no acute distress and in no acute pain. Skin: The skin is warm and dry and skin color reflects adequate perfusion. HEENT: The head is normocephalic and atraumatic. The pupils are equal and reactive. The conjunctivae are clear and without drainage. Nares are patent and without drainage. Mouth reveals moist mucous membranes and the throat is without erythema and exudate. The external ears are intact. The ear canals are patent and without drainage. The tympanic membranes are intact. Neck: The neck is supple with full range of motion and non-tender. There are no carotid bruits. There is no neck vein distension. Respiratory: Chest is non-tender. Lungs are clear to auscultation and breath sounds are symmetrical and equal. Cardiovascular: Heart is regular rate and rhythm. There is no murmur or rub auscultated. There is no peripheral edema and pulses are symmetrical and equal. Abdomen: There is diffuse tenderness and positive rebound Musculoskeletal: There is no back tenderness noted. Extremities are non-tender with full range of motion. There is good capillary refill. There is no peripheral edema or calf tenderness elicited. Neurological: Patient is alert and oriented to person, place and time. The patient has symmetrical motor strength in all four extremities. Cranial nerves are grossly intact. Deep tendon reflexes are symmetrical and equal in all four extremities. Psychiatric: The patient has an appropriate affect and does not exhibit any anxiety or depression. Triage Information Reviewed: Yes Vital Signs On Initial Exam: Initial Vitals Temp Pulse Resp BP Pulse Ox 98.8 F 93 18 140/89 100 02/24/19 18:04 02/24/19 18:04 02/24/19 18:04 02/24/19 18:04 02/24/19 18:04 Vital Signs Reviewed: Yes Diagnostics - Vital Signs Vital Signs Temp Pulse Resp BP Pulse Ox 02/24/19 18:04 98.8 F 93 18 140/89 100 - Laboratory Result Diagrams: 02/24/19 19:06 02/24/19 19:06 Lab Statement: Any lab studies that have been ordered have been reviewed, and results considered in the medical decision making process. - CT Abd/Pel CT Interpretation Completed By: Radiologist Summary of CT Findings: 1. Small amount of free intraperitoneal and subcutaneous air, likely secondary to recent surgery. However, perforated viscus cannot be excluded radiographically. 2. IUD in acceptable location in the uterus. Findings were discussed with LIBERTY PEREYRA at 02/24/2019 7:35 PM EDT. ED physician has reviewed this report. Re-Evaluation - Re-Evaluation First Eval Re-Evaluation Time: 20:33 Change: Improved Comment: Discussed disposition plan with patient. She is agreeable to discharge Abdominal Pain Fem Course/Dx - Course Course Of Treatment: Ms. Nazario seemed to be in quite a bit of pain on arrival. She is 1 day status post appendectomy with diffuse abdominal pain. She denied nausea or vomiting at that time but developed while she was here. She is using Percocet at home. She was nontoxic on arrival with stable vital signs. Her laboratory workup was unremarkable as was CT scan of the abdomen and pelvis. I spoke with Dr. Klein who recommended symptomatic treatment and follow-up. - Diagnoses Provider Diagnoses: Post-op pain Discharge - Sign-Out/Discharge Documenting (check all that apply): Patient Departure - Discharge Patient Received Moderate/Deep Sedation with Procedure: No - Discharge Plan Condition: Stable Disposition: HOME Prescriptions: Ondansetron ODT TAB* [Zofran Odt TAB*] 4 mg PO Q6H PRN #20 tab.odt PRN Reason: Nausea/Vomiting Patient Education Materials: Pain Management After Surgery (GEN) Referrals: Bernardo Klein MD [Medical Doctor] - 2 Days Additional Instructions: Follow up with Dr. Klein in 2-3 days. Return to the Emergency Department for new or worsening symptoms. - Billing Disposition and Condition Condition: STABLE Disposition: Home - Attestation Statements Document Initiated by Treasureibe: Yes Documenting Scribe: Marguerite Lomax Provider For Whom Kathie is Documenting (Include Credential): Liberty Pereyra MD Scribe Attestation: IMarguerite, scribed for Liberty Pereyra MD on 02/24/19 at 5039. Scribe Documentation Reviewed: Yes Provider Attestation: The documentation as recorded by the Marguerite jacob accurately reflects the service I personally performed and the decisions made by me, Liberty Pereyra MD Status of Scribe Document: Viewed
[2019-02-24] MEDS ORDERED: Ondansetron INJ* 2 MG/ML VIAL IV ONE (19:01)
[2019-02-24] MEDS ORDERED: Ondansetron INJ* 2 MG/ML VIAL ONE (19:02)
[2019-02-24 19:21] LABS: ABS Basophils 0 10^3/ul (0-0.2); ABS Eosinophils 0 10^3/ul (0-0.6); ABS Lymphocytes 3.5 10^3/ul (1.0-4.8); ABS Neutrophils 7.1 10^3/ul (1.5-7.7); ABS Nucleated RBC 0 10^3/ul; Eosinophil % 0.4 %; Hematocrit 38 % (33-41); Hemoglobin 12.6 g/dL (12.0-16.0); Lymphocyte % 29.9 %; Mean Corpuscular HGB Conc 33 g/dL (31-36); Mean Corpuscular Hemoglobin 29 pg (27-31); Mean Corpuscular Volume 87 fL (80-97); Mean Platelet Volume 7.2 fL (7.4-10.4); Nucleated Red Blood Cells % 0; Platelet Count 265 10^3/uL (150-450); Red Blood Count 4.37 10^6 /uL (3.70-4.87); Red Cell Distribution Width 13 % (10.5-15); White Blood Count 11.8 10^3/uL (3.5-10.8)
[2019-02-24 19:31] LABS: Albumin 4.1 g/dL (3.2-5.2); Albumin/Globulin Ratio 1.5 (1-3); BUN/Creatinine Ratio 13.8 (8-20); C Reactive Protein 35.93 mg/L (<8.01); Calcium 9.1 mg/dL (8.6-10.3); EGFR African American 106.6 (>60); EGFR Non-African American 88.1 (>60); Globulin 2.8 g/dL (2-4); Potassium 3.3 mmol/L (3.5-5.0); Total Bilirubin 0.4 mg/dL (0.2-1.0); Total Protein 6.9 g/dL (6.4-8.9)
[2019-02-24] MEDS ORDERED: Metoclopramide IV* 5 MG/ML 2 ML VIAL IV ONE (19:42)
[2019-02-24 19:50] LABS: Urine Appearance Cloudy; Urine Bilirubin Negative (Negative); Urine Blood Negative (Negative); Urine Color Yellow; Urine Glucose Negative (Negative); Urine Ketones Trace (Negative); Urine Nitrite Negative (Negative); Urine Protein Negative (Negative); Urine Specific Gravity 1.024 (1.010-1.030); Urine Urobilinogen Negative (Negative)
[2019-02-24] MEDS ORDERED: Ondansetron ODT TAB* 4 MG PO ONE (20:33)
[2019-02-24 20:46] VITALS: BP 98/51
[2019-02-24] MEDS ORDERED: O ndansetron ODT 4MG 5TAB PRPK 4 MG PAK PO ONE (20:56)
== END 2019-02-24 21:10 | disposition home or self-care (01) ==
LOC: ED 18:03
DX: G89.18 Other acute postprocedural pain (principal); J45.909 Unspecified asthma, uncomplicated; Z90.49 Acquired absence of other specified parts of digestive tract; Z88.3 Allergy status to other anti-infective agents; Z97.5 Presence of (intrauterine) contraceptive device
CPT/HCPCS: 36415; 74176; 80053; 81003; 83605; 83690; 85025; 86140; 87040; 96361; 96374; 96375; 99283; A9270-GY; J1170; J2405; J2765

== ENCOUNTER → 2019-04-04 15:16 | Emergency (ER) | payer BC ==
[2019-04-04 17:39] LABS: ABS Basophils 0.1 10^3/ul (0-0.2); ABS Eosinophils 0.1 10^3/ul (0-0.6); ABS Lymphocytes 2.8 10^3/ul (1.0-4.8); ABS Monocytes 0.8 10^3/ul (0-0.8); ABS Neutrophils 4.9 10^3/ul (1.5-7.7); Eosinophil % 1.4 %; Hematocrit 41 % (35-47); Hemoglobin 14.1 g/dL (12.0-16.0); Lymphocyte % 32.4 %; Mean Corpuscular HGB Conc 34 g/dL (31-36); Mean Corpuscular Hemoglobin 30 pg (27-31); Mean Corpuscular Volume 87 fL (80-97); Mean Platelet Volume 6.7 fL (7.4-10.4); Nucleated Red Blood Cells % 0.1; Platelet Count 372 10^3/uL (150-450); Red Blood Count 4.74 10^6 /uL (3.70-4.87); Red Cell Distribution Width 13 % (10.5-15); White Blood Count 8.7 10^3/uL (3.5-10.8)
[2019-04-04 17:56] LABS: Albumin 4.7 g/dL (3.2-5.2); Albumin/Globulin Ratio 1.6 (1-3); BUN/Creatinine Ratio 15.7 (8-20); Calcium 9.7 mg/dL (8.6-10.3); EGFR African American 93.5 (>60); EGFR Non-African American 77.3 (>60); Globulin 2.9 g/dL (2-4); Magnesium 2.2 mg/dL (1.9-2.7); Potassium 3.8 mmol/L (3.5-5.0); Total Bilirubin 0.4 mg/dL (0.2-1.0); Total Protein 7.6 g/dL (6.4-8.9)
[2019-04-04 17:58] LABS: Urine Appearance Clear; Urine Bilirubin Negative (Negative); Urine Blood Negative (Negative); Urine Color Yellow; Urine Glucose Negative (Negative); Urine Ketones Trace (Negative); Urine Nitrite Negative (Negative); Urine Protein Negative (Negative); Urine Specific Gravity 1.013 (1.010-1.030); Urine Urobilinogen Negative (Negative)
[2019-04-04 18:31] LABS: TSH (Thyroid Stimulating Horm) 1.22 mcIU/mL (0.34-5.60)
--- NOTE | 2019-04-04 18:36 | ED ---
Dizziness - HPI Summary HPI Summary: The patient is a 24 y/o F presenting to [facility] with a chief complaint of sudden onset dizziness and body shakes in the last hour. 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 At work, she felt her heart beating fast, and she took her HR and BP, which were 132 BPM and 148/100 respectively. She has had lightheadedness before, but not as severe as this. She denies any use of energy drinks. Nonsmoker, no EtOH, no substance use. Hx of anxiety, depression, asthma. No hx of thyroid issues. Recently had appendectomy on 02/23/2019 LNMP: October 2018 (she has IUD). - History Of Current Complaint Chief Complaint: EDDizziness Stated Complaint: DIZZINESS PER PT CO WORK Time Seen by Provider: 04/04/19 18:02 Hx Obtained From: Patient Onset/Duration: Still Present Timing: Minutes Severity Initially: Mild Severity Currently: Moderate Character: Lightheaded, Dizzy Aggravating Factor(s): Nothing Alleviating Factor(s): Nothing Associated Signs And Symptoms: Positive: Palpitations - Allergies/Home Medications Allergies/Adverse Reactions: Allergies Allergy/AdvReac Type Severity Reaction Status Date / Time adhesive tape Allergy Rash Verified 04/04/19 15:23 azithromycin Allergy Swelling Verified 04/04/19 15:23 Home Medications: Home Medications Buspar TAB* 5 mg PO DAILY 04/04/19 [History Confirmed 04/04/19] buPROPion TAB* [Wellbutrin TAB*] 1 tab PO BID 04/04/19 [History Confirmed ] clonazePAM [Clonazepam] 1 mg PO BID 04/04/19 [History Confirmed 04/04/19] PMH/Surg Hx/FS Hx/Imm Hx Endocrine/Hematology History: Denies: Hx Diabetes, Hx Systemic Lupus Erythematosus, Hx Thyroid Disease Cardiovascular History: Denies: Hx Hypercholesterolemia, Hx Hypertension Respiratory History: Reports: Hx Asthma Denies: Hx Chronic Obstructive Pulmonary Disease (COPD) GI History: Denies: Hx Ulcer History: Denies: Hx Renal Disease Neurological History: Reports: Hx Headaches Denies: Hx CVA, Hx Developmental Delay, Hx Transient Ischemic Attacks (TIA) Psychiatric History: Reports: Hx Anxiety, Hx Depression - Surgical History Surgery Procedure, Year, and Place: Appendectomy 02/23/19 Infectious Disease History: No Infectious Disease History: Denies: Hx Hepatitis, Hx Human Immunodeficiency Virus (HIV), History Other Infectious Disease, Traveled Outside the [place] in Last 30 Days - Family History Known Family History: Positive: Diabetes, Other - DVT, Leukemia - Social History Occupation: Employed Full-time Alcohol Use: Occasionally Hx Substance Use: No Substance Use Type: Reports: None Hx Tobacco Use: No Smoking Status (MU): Never Smoked Tobacco Do You Chew or Dip Tobacco: No Have You Chewed or Dipped Tobacco in the LAST YEAR: No Have You Smoked in the Last Year: No Review of Systems Positive: Other - body shakes Positive: Palpitations - increased HR of 132 BPM Neurological: Other - dizzy, lightheaded All Other Systems Reviewed And Are Negative: Yes Physical Exam - Summary Physical Exam Summary: VITAL SIGNS: Reviewed. GENERAL: Patient is a well-developed and nourished female who is lying comfortable in the stretcher. Patient is not in any acute respiratory distress. HEAD AND FACE: No signs of trauma. No ecchymosis, hematomas or skull depressions. No sinus tenderness. EYES: PERRLA, EOMI x 2, No injected conjunctiva, no nystagmus. EARS: Hearing grossly intact. Ear canals and tympanic membranes are within normal limits. MOUTH: Oropharynx within normal limits. NECK: Supple, trachea is midline, no adenopathy, no JVD, no carotid bruit, no c- spine tenderness, neck with full ROM. CHEST: Symmetric, no tenderness at palpation LUNGS: Clear to auscultation bilaterally. No wheezing or crackles. CVS: Regular rate and rhythm, S1 and S2 present, no murmurs or gallops appreciated. ABDOMEN: Soft, non-tender. No signs of distention. No rebound no guarding, and no masses palpated. Bowel sounds are normal. EXTREMITIES: FROM in all major joints, no edema, no cyanosis or clubbing. NEURO: Alert and oriented x 3. No acute neurological deficits. Speech is normal and follows commands. SKIN: Dry and warm. Triage Information Reviewed: Yes Vital Signs On Initial Exam: Initial Vitals Temp Pulse Resp BP Pulse Ox 98.2 F 94 18 139/100 100 04/04/19 15:21 04/04/19 15:21 04/04/19 15:21 04/04/19 15:21 04/04/19 15:21 Vital Signs Reviewed: Yes Diagnostics - Vital Signs Vital Signs Temp Pulse Resp BP Pulse Ox 04/04/19 15:21 98.2 F 94 18 139/100 100 - Laboratory Lab Results: Lab Results 04/04/19 04/04/19 04/04/19 Range/Units 17:30 17:30 17:30 WBC 8.7 (3.5-10.8) 10^3/uL RBC 4.74 (3.70-4.87) 10^6 /uL Hgb 14.1 (12.0-16.0) g/dL Hct 41 (35-47) % MCV 87 (80-97) fL MCH 30 (27-31) pg MCHC 34 (31-36) g/dL RDW 13 (10.5-15) % Plt Count 372 (150-450) 10^3/uL MPV 6.7 L (7.4-10.4) fL Neut % (Auto) 56.3 % Lymph % (Auto) 32.4 % Major % (Auto) 9.3 % Eos % (Auto) 1.4 % Baso % (Auto) 0.6 % Absolute Neuts (auto) 4.9 (1.5-7.7) 10^3/ul Absolute Lymphs (auto) 2.8 (1.0-4.8) 10^3/ul Absolute Monos (auto) 0.8 (0-0.8) 10^3/ul Absolute Eos (auto) 0.1 (0-0.6) 10^3/ul Absolute Basos (auto) 0.1 (0-0.2) 10^3/ul Absolute Nucleated RBC 0.0 10^3/ul Nucleated RBC % 0.1 Sodium 140 (135-145) mmol/L Potassium 3.8 (3.5-5.0) mmol/L Chloride 107 (101-111) mmol/L Carbon Dioxide 25 (22-32) mmol/L Anion Gap 8 (2-11) mmol/L BUN 14 (6-24) mg/dL Creatinine 0.89 (0.51-0.95) mg/dL Est GFR ( Amer) 93.5 (>60) Est GFR (Non-Af Amer) 77.3 (>60) BUN/Creatinine Ratio 15.7 (8-20) Glucose 92 (70-100) mg/dL Lactic Acid 0.8 (0.5-2.0) mmol/L Calcium 9.7 (8.6-10.3) mg/dL Magnesium 2.2 (1.9-2.7) mg/dL Total Bilirubin 0.40 (0.2-1.0) mg/dL AST 16 (13-39) U/L ALT 10 (7-52) U/L Alkaline Phosphatase 72 (34-104) U/L Troponin I 0.00 (<0.04) ng/mL Total Protein 7.6 (6.4-8.9) g/dL Albumin 4.7 (3.2-5.2) g/dL Globulin 2.9 (2-4) g/dL Albumin/Globulin Ratio 1.6 (1-3) TSH Pending Urine Color Urine Appearance Urine pH (5-9) Ur Specific [place] (1.010-1.030) Urine Protein (Negative) Urine Ketones (Negative) Urine Blood (Negative) Urine Nitrate (Negative) Urine Bilirubin (Negative) Urine Urobilinogen (Negative) Ur Leukocyte Esterase (Negative) Urine Glucose (Negative) 04/04/19 Range/Units 17:46 WBC (3.5-10.8) 10^3/uL RBC (3.70-4.87) 10^6 /uL Hgb (12.0-16.0) g/dL Hct (35-47) % MCV (80-97) fL MCH (27-31) pg MCHC (31-36) g/dL RDW (10.5-15) % Plt Count (150-450) 10^3/uL MPV (7.4-10.4) fL Neut % (Auto) % Lymph % (Auto) % Major % (Auto) % Eos % (Auto) % Baso % (Auto) % Absolute Neuts (auto) (1.5-7.7) 10^3/ul Absolute Lymphs (auto) (1.0-4.8) 10^3/ul Absolute Monos (auto) (0-0.8) 10^3/ul Absolute Eos (auto) (0-0.6) 10^3/ul Absolute Basos (auto) (0-0.2) 10^3/ul Absolute Nucleated RBC 10^3/ul Nucleated RBC % Sodium (135-145) mmol/L Potassium (3.5-5.0) mmol/L Chloride (101-111) mmol/L Carbon Dioxide (22-32) mmol/L Anion Gap (2-11) mmol/L BUN (6-24) mg/dL Creatinine (0.51-0.95) mg/dL Est GFR ( Amer) (>60) Est GFR (Non-Af Amer) (>60) BUN/Creatinine Ratio (8-20) Glucose (70-100) mg/dL Lactic Acid (0.5-2.0) mmol/L Calcium (8.6-10.3) mg/dL Magnesium (1.9-2.7) mg/dL Total Bilirubin (0.2-1.0) mg/dL AST (13-39) U/L ALT (7-52) U/L Alkaline Phosphatase (34-104) U/L Troponin I (<0.04) ng/mL Total Protein (6.4-8.9) g/dL Albumin (3.2-5.2) g/dL Globulin (2-4) g/dL Albumin/Globulin Ratio (1-3) TSH Urine Color Yellow Urine Appearance Clear Urine pH 7.0 (5-9) Ur Specific [place] 1.013 (1.010-1.030) Urine Protein Negative (Negative) Urine Ketones Trace A (Negative) Urine Blood Negative (Negative) Urine Nitrate Negative (Negative) Urine Bilirubin Negative (Negative) Urine Urobilinogen Negative (Negative) Ur Leukocyte Esterase Negative (Negative) Urine Glucose Negative (Negative) Result Diagrams: 04/04/19 17:30 04/04/19 17:30 Lab Statement: Any lab studies that have been ordered have been reviewed, and results considered in the medical decision making process. - EKG 1625 Cardiac Rate: NL - 72 BPM EKG Rhythm: Sinus Rhythm Summary of EKG Findings: Nml axis, no ST elevations Re-Evaluation - Re-Evaluation First Eval Re-Evaluation Time: 19:55 Comment: I discussed and discharge my results with the patient. Dizzy Course/Dx - Course Assessment/Plan: The patient is a 24 y/o F presenting to [facility] with a chief complaint of sudden onset dizziness and body shakes in the last hour. 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 At work, she felt her heart beating fast, and she took her HR and BP, which were 132 BPM and 148/100 respectively. She has had lightheadedness before , but not as severe as this. She denies any use of energy drinks. Nonsmoker, no EtOH, no substance use. Hx of anxiety, depression, asthma. No hx of thyroid issues. Recently had appendectomy on 02/23/2019 LNMP: October 2018 (she has IUD ). Blood test results without any significant abnormality, troponin 0.00, d- dimer is less than 200, an EKG is a normal sinus rhythm without any ST elevations and a normal axis. The heart rate is controlled. Blood test are within normal limits, and the d-dimer is negative, so therefore there is no suspicion for PE. The patient will be discharged home with follow-up with primary care physician. Patient is hemodynamically stable alert and oriented 3. I discussed all the findings and test results with the patient. Patient was instructed to return to the emergency room immediately if any of the symptoms return worsens. Plan of care was discussed with the patient and understands and agrees. All questions were answered at patient satisfaction. There were no further complaints or concerns. Lung exam before discharge: CTA B/L. Good air exchange. No wheezing or crackles heard. CVS: S1 and S2 present. No murmurs appreciated. Patient is alert and oriented x 3. Patient is hemodynamically stable. Patient will be discharged home with follow up PCP in the next 2-3 days. - Diagnoses Provider Diagnoses: Palpitations Discharge - Sign-Out/Discharge Documenting (check all that apply): Patient Departure - Patient will be discharged home. Patient Received Moderate/Deep Sedation with Procedure: No - Discharge Plan Condition: Stable Disposition: HOME Patient Education Materials: Heart Palpitations (DC) Referrals: Caitlin Timmons PA [Primary Care Provider] - 3 Days Additional Instructions: FOLLOW UP WITH YOUR PRIMARY CARE PROVIDER WITHIN ONE WEEK. RETURN TO THE ED FOR ANY WORSENING OR NEW SYMPTOMS. - Billing Disposition and Condition Condition: STABLE Disposition: Home - Attestation Statements Document Initiated by Scribe: Yes Documenting Scribe: Almaz Brower Provider For Whom Scribe is Documenting (Include Credential): MD Treasure Luciaibe Attestation: IAlmaz scribed for Dr. Heber Walsh MD on 04/04/19 at 2205. Scribe Documentation Reviewed: Yes Provider Attestation: The documentation as recorded by the scribe, Almaz Brower accurately reflects the service I personally performed and the decisions made by me, Dr. Heber Walsh MD Status of Scribe Document: Viewed
[2019-04-04 20:00] VITALS: BP 133/89
== END | disposition home or self-care (01) ==
LOC: ED 15:16
DX: R00.2 Palpitations (principal); J45.909 Unspecified asthma, uncomplicated; F41.9 Anxiety disorder, unspecified; F32.9 Major depressive disorder, single episode, unspecified; Z88.3 Allergy status to other anti-infective agents; Z79.899 Other long term (current) drug therapy
CPT/HCPCS: 36415; 80053; 81003; 83605; 83735; 84443; 84484; 85025; 85379; 93005; 99282

== ENCOUNTER 2019-04-30 10:47 | Emergency (ER) | payer BC ==
--- OUTSIDE RECORDS SUMMARY | 2019-04-30 11:22 | XMS REPORT | Continuity of Care Document ---
:1995 External Reference #:[id number] Author Name Mirtha Elias Care Team Providers Name Role Phone Caitlin Timmons PA Primary Care Physician Unavailable Payers Date Identification Numbers Payment Provider Subscriber Policy Number: [id number] [employer] Doni Nazario PayID: [id number] [address] [address] [place] [address] Effective: 2009 Policy Number: [id number] [employer] Doni Nazario Expires: 2017 PayID: [id number] [address] [address] [place] [address] Family History Date Family Member(s) Observation Comments Father Alive And Well Mother Alive And Well Siblings 4 younger brother 1- alive and well younger brother 2 now 20 years old - when 8 pt suffered a stroke from DVT complication from ALL chemo younger brother 3 alive and well younger brother 4 alive and well younger half sister alive and well Social History Type Date Description Comments Sex Unknown Marital Status Single Lives With Children Occupation Currently Working aide ETOH Use Denies alcohol use Tobacco Use Start: Unknown Patient has never smoked Recreational Drug Use Never Used Drugs Smoking Status Reviewed: 04/10/19 Patient has never smoked Exercise Type/Frequency Exercises regularly Allergies, Adverse Reactions, Alerts Active Allergies Reaction Severity Comments Date Azithromycin throat swelling 02/27/2019 Adhesive 04/09/2019 Medications Active Medications SIG Qnty Indications Ordering Provider Date Mirena (52 MG) inserted october Unknown 10/31/2018 2018 10 year iud 20mcg/24HR IUD Clindamycin Phosphate apply to affected Unknown area on face 2x 1% Lotion daily prn acne Clonazepam take 1/2 to 1 Unknown 0.5mg tablet as needed Tablets anxiety and sleepbid Buspirone HCL 1 by mouth 2 times Unknown 5mg a day Tablets Multi Complete daily Unknown Capsules History Medications Lexapro 1 by mouth every Unknown 04/03/2019 - 10mg Tablets day 04/09/2019 Acetaminophen/Codein 1 tab by mouth 30tabs Cabrera Tucker M.D. 11/28/2011 - Unknown e #2 every 6 hours 300-15mg Tablets pain Oxycodone-Acetaminop 1 tabs by mouth Unknown - hen every 4-6 hours 04/09/2019 5-325mg Tablets as needed for pain Bupropion HCL take 1 tablet by Unknown - 100mg mouth two times 04/10/2019 Tablets daily end date 04/10/[address] 1 tab by mouth Unknown - 500mg once a day prn p 04/09/[address] pt rarely uses Vital Signs Date Vital Result Comment 04/10/2019 11:40am Height 59 inches 4'11" Weight 149.00 lb w/shoes Heart Rate 78 /min BP Systolic 126 mmHg Rue reg cuff BP Diastolic 70 mmHg Rue reg cuff BP Systolic Sitting 118 mmHg Lue reg cuff BP Diastolic Sitting 68 mmHg Lue reg cuff BP Systolic Standing 120 mmHg Lue reg cuff BP Diastolic Standing 70 mmHg Lue reg cuff BMI (Body Mass Index) 30.1 kg/m2 03/05/2019 11:20am Height 59 inches 4'11" Weight 147.00 lb Heart Rate 84 /min BP Systolic Sitting 112 mmHg BP Diastolic Sitting 72 mmHg Respiratory Rate 16 /min Body Temperature 98.7 F BMI (Body Mass Index) 29.7 kg/m2 11/28/2011 12:08pm Height 59 inches 4'11" Weight 138.00 lb Heart Rate 85 /min BP Systolic 124 mmHg BP Diastolic 83 mmHg BMI (Body Mass Index) 27.9 kg/m2 Blood Pressure Percentile 94 % Height Percentile 3 % Weight Percentile 73rd Results Test Date Facility Test Result H/L Range Note Laboratory test 02/23/2019 [facility] Surgical SEE RESULT [address] [place] [address] [phone] 1 SEE RESULT BELOW Name: DONI NAZARIO : [address]: Bernardo Klein MD Acct: [id number] Unit: [id number] AGE: 23 Location: OR Re02/23/19 SEX: F [place] [facility] [id number] REMEDIOS: 02/23/19 [facility] [address]: Bernardo Klein MD REQ: [id number] RECD: 02/23/19 STATUS: SOUT _ ORDERED: LEVEL 3 FINAL DIAGNOSIS Appendix, appendectomy: -- Acute appendicitis and ramya-appendicitis. PRE-OPERATIVE DIAGNOSIS Acute appendicitis GROSS DESCRIPTION The specimen is received in formalin labeled, Appendix, consists of a 9.5 x up to 1.0 by 0.8 cm vermiform appendix with moderate attached mesoappendix. The serosa is proximal glistening villarreal-pink to distal mottled villarreal-brown with focal areas of purulence in indurated distal tip. No perforation is identified. The Wall thickness ranges from less than 0.1-0.2 cm the mucosa is predominantly mottled to necrotic red-brown lumen contains ample brown pink fecal material and ranges from less than 0.1 cm to 0.9 cm. Manager Drug sections are submitted in one cassette. Signed by and Reported on: Rosa Venutra MD 02/26/19 1520 END OF REPORT DEPARTMENT OF PATHOLOGY, [address] [place] [address] Giovanny Giraldo M.D. Director [facility] # [id number] Procedures Date Code Description Status 04/10/2019 19597 EKG Tracing & Interpretation Completed 02/23/2019 18959 Laparoscopy, Surgical, Appendectomy Completed 10/26/2018 72474 Biopsy Skin Lesion Single Completed Encounters Type Date Location Provider Dx Diagnosis Office Visit 04/10/2019 [facility] Philip Pineda, R42 Dizziness and 12:00p [facility] DO FACC giddiness R00.2 Palpitations Office Visit 02/23/2019 7:00a Surgical Bernardo Anderson K35.30 Acute appendicitis [facility] Poly Klein with loc peritonitis, w/o perf or gangr Office Visit 11/28/2011 11:15a Orthopedic Cabrera Tucker, 844.1 Sprains [facility] Strains Services Of Poly Knee Medial C.M.AAlessandra Collateral Ligament 836.1 Dislocation Knee Tear Of Lateral Cartilage Or Meniscus Luis Plan of Treatment Future Appointment(s):04/25/2019 11:00 am - Nurse Visit IC at [facility]04/24/2019 11:30 am - Nurse Visit IC at [facility]2018 2:00 pm - Ica ECHO Schedule at [facility]05/08/2019 9:45 am - Kay Vela MD at [facility] Iywxystphjv07/29/2019 - Philip Pineda DO [id number] Dizziness and giddinessNew Orders:Echocardiogram, Ordered: Comments:If you wear the holter monitor (24 hours) and don't have any symptoms , let us know and we can try toarrange for an event monitor (1 month of rhythm monitoring).Follow up:f/u prnR00.2 PalpitationsNew Labs:Catecholamine 24HR Urine Fract, Ordered: 04/10/19Urine Metanephrines 24HR, Ordered: Catecholamines Plasma, Ordered: 04/10/19Metanephrines Plasma, Ordered: New Orders:Holter Monitor, Ordered: 04/10/19
--- OUTSIDE RECORDS SUMMARY | 2019-04-30 11:23 | XMS REPORT | Continuity of Care Document ---
:1995 External Reference #:[id number] Author Name Nancy Fletcher Care Team Providers Name Role Phone Rajan Han MD Primary Care Physician Unavailable Payers Date Identification Numbers Payment Provider Subscriber Policy Number: [id number] [employer] Doni Nazario PayID: [id number] [address] [address] [place] [address] Effective: 2009 Policy Number: [id number] [employer] Medicaid Doni Nazario Expires: 2017 PayID: [id number] [address] [address] [place] [address] Family History Date Family Member(s) Observation Comments General Non-Contributory Siblings 4 Social History Type Date Description Comments Sex Unknown Marital Status Single Occupation Currently Working aide ETOH Use Rarely consumes alcohol Tobacco Use Start: Unknown Patient has never smoked Smoking Status Reviewed: 03/05/19 Patient has never smoked Exercise Type/Frequency Exercises regularly Allergies, Adverse Reactions, Alerts Active Allergies Reaction Severity Comments Date Azithromycin throat swelling 02/27/2019 Adhesive 04/09/2019 Medications Active Medications SIG Qnty Indications Ordering Provider Date Lexapro 1 by mouth every Unknown 04/03/2019 10mg Tablets day Mirena (52 MG) inserted october Unknown 10/31/2018 2018 10 year iud 20mcg/24HR IUD Oxycodone-Acetaminoph 1 tabs by mouth Unknown en every 4-6 hours as 5-325mg Tablets needed for pain Bupropion HCL take 1 tablet by Unknown 100mg mouth two times Tablets daily end date 04/10/19 Clindamycin Phosphate apply to affected Unknown area on face 2x 1% Lotion daily prn acne Naproxen DR 1 tab by mouth Unknown 500mg once a day prn p Tablets DR pt rarely uses Clonazepam take 1/2 to 1 Unknown 0.5mg tablet as needed Tablets anxiety and sleepbid History Medications Acetaminophen/Codeine #2 1 tab by mouth 30tabs Cabrera Tucker, 11/28/2011 - 300-15mg Tablets every 6 hours M.D. Unknown pain Vital Signs Date Vital Result Comment 03/05/2019 11:20am Height 59 inches 4'11" Weight [...] Result H/L Range Note Laboratory test 02/23/2019 [facility] Surgical SEE RESULT [address] Pathology BELOW [place] [id number] [phone] 1 SEE RESULT BELOW Name: DONI NAZARIO : [address]: Bernardo Klein MD Acct: [id number] Unit: [id number] AGE: 23 Location: OR Re02/23/19 SEX: F Status: [facility] SPEC: [id number] REMEDIOS: 02/23/19-[address] [facility] [address]: Bernardo Klein MD REQ: [id number] RECD: 02/23/19 STATUS: SOUT _ ORDERED: LEVEL [...] less than 0.1 cm to 0.9 cm. [employer] Worker sections are submitted in one cassette. Signed by and Reported on: Rosa Ventura MD 02/26/19 1520 END OF REPORT DEPARTMENT OF PATHOLOGY, [address] [place] [address] Giovanny Giraldo M.D. Director [facility] # [id number] Procedures Date Code Description Status 02/23/2019 93281 Laparoscopy, Surgical, Appendectomy Completed 10/26/2018 63792 Biopsy Skin Lesion Single Completed Encounters Type Date Location Provider Dx Diagnosis Office Visit 02/23/2019 Surgical Bernardo Klein, K35.30 Acute appendicitis 7:00a [facility] Poly with loc peritonitis, w/o perf or gangr Office Visit 11/28/2011 Orthopedic Cabrera Tucker, 844.1 Sprains & Strains 11:15a [facility] Medial Collateral Ligament 836.1 Dislocation Knee Tear Of Lateral Cartilage Or Meniscus Curre Plan of Treatment Future Appointment(s):04/10/2019 12:00 pm - Philip Pineda DO FACC at [facility]05/08/2019 9:45 am - Kay Vela MD at [facility] [id number]/ 23/2019 - Bernardo Klein M.D.K35.30 Acute appendicitis with localized peritonitis, without perfoFollow up:As needed
--- OUTSIDE RECORDS SUMMARY | 2019-04-30 11:23 | XMS REPORT | Continuity of Care Document ---
:1995 External Reference #:[id number] Author Name Franck Chau M.D. Address [facility] [address] [place] [address] Care Team Providers Name Role Phone HCP given Primary Care Physician Unavailable Payers Date Identification Numbers Payment Provider Subscriber Effective: Policy Number: [id number] Maria De Jesusus Doni Nazario 2018 Ind/Ppo/Hmo/Pos PayID: [id number] [address] [address] [place] [address] Family History Date Family Member(s) Observation Comments General Asthma self, grandmother, siblings General Emotional Problems grandmother General High Blood Pressure grandmother General Hypercholesterolemia grandmother General Seizure Disorder uncle, cousin, daughter First Brother Cancer First Brother Stroke as child Social History Type Date Description Comments Sex Unknown Education High School Completed Marital Status Lives With Children Lives With 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 Tobacco Use Start: Unknown Denies Cigarette Use Smoking Status Reviewed: 03/01/18 Denies Cigarette Use ETOH Use Rarely consumes alcohol Tobacco Use Start: Unknown Patient has never smoked Recreational Drug Use Denies Drug Use Exercise Type/Frequency Exercises rarely Seat Belt/Car Seat always uses seat belt Smoke Alarms Yes smoke alarm Currently Active Patient is currently sexually active Contraceptive Methods 10/2018 IUD Mirena Age 1st Gerster 12 Years Old # Partners in a Lifetime Partners 1-5 Allergies, Adverse Reactions, Alerts Active Allergies Reaction Severity Comments Date Zithromax Anaphylaxis Severe Hives, throat closes 03/01/2018 Medications Active Medications SIG Qnty Indications Ordering Date Provider Bupropion Hydrochloride 1 tab by mouth 60tabs F43.23 Franck Chau, ER (SR) morning and M.D. 100mg Tablets ER later afternoon, 12HR with food for anxiety/depressi on Clindamycin Phosphate apply a thin 60ml L70.0 Franck Chau, 04/03/2019 1% film to face M.D. Lotion twice a day , for acne Buspirone HCL 1 every morning 60tabs F43.23 Franck Chau, 04/03/2019 5mg Tablets x 5 days then M.D. increase to twice a day for anxiety Clonazepam 1/2 to one 14tabs F43.23 Brian Antonio, 03/22/2019 0.5mg Tablets tablet by mouth D.O. for anxiety up to 2 times a day Levonorgestrel IUD Unknown 11/09/2018 Naproxen one po twice Unknown 05/30/2018 500mg Tablets daily prn History Medications Bupropion take one tablet 60tabs F43.23 Franck Chau, 03/29/2019 - Hydrochloride ER (SR) by mouth bid M.D. 04/03/2019 150mg Tablets ER 12HR Bupropion 1 tab by mouth 60tabs F43.23 Franck Chau, 03/15/2019 - Hydrochloride ER (SR) morning and M.D. 03/29/2019 later 100mg Tablets ER 12HR afternoon, with food for anxiety/depress ion Escitalopram Oxalate 1 tab qhs 60tabs F43.23 Franck Chau, 11/29/2018 - 5mg M.D. 03/22/2019 Tablets Neomycin/Polymyxin/Hyd instill 4 drops 10ml H65.00 Franck Chau, 2017 - rocortisone (Otic) 3 to 4 times M.D. 11/28/2018 daily x 5 day [id number] Solution Promethazine HCL one po every 6 Unknown 05/27/2018 - 25mg hrs prn 11/28/2018 Tablets Buspirone HCL 1 a day x 5 60tabs F43.23 Franck Chau, 03/01/2018 - 5mg Tablets days then stop M.D. 12/06/2018 Tri-Sprintec Unknown 02/13/2018 - 11/28/2018 0.18/0.215/0.25 mg-35 mcg Tablets Immunizations CPT Code Status Date Vaccine Lot # U-Flu Given 11/26/2018 Influenza,Unspecified [id number] Given 12/13/2013 Gardasil 9 HPV vaccine; Nonavalent 3 Dose Schedule Im Vital Signs Date Vital Result Comment 04/03/2019 10:58am BP Systolic 122 mmHg BP Diastolic 68 mmHg Weight 140.00 lb 03/22/2019 11:27am BP Systolic 114 mmHg BP Diastolic 66 mmHg Weight 153.00 lb 03/15/2019 1:17pm BP Systolic 106 mmHg BP Diastolic 66 mmHg Weight 152.00 lb 01/08/2019 8:54am BP Systolic 110 mmHg BP Diastolic 68 mmHg BP Systolic Recheck 129 mmHg sitting pulse 70 BP Diastolic Recheck 79 mmHg sitting pulse 70 BP Systolic Standing Resting Right Arm 97 mmHg standing pulse 100 BP Diastolic Standing Resting Right Arm 72 mmHg standing pulse 100 Heart Rate 104 /min lying BP 126/64 pulse 73 O2 % BldC Oximetry 98 % Weight 143.00 lb Head Circumference 59 inches Head Circumference in cm's 149.9 cm 11/29/2018 3:57pm BP Systolic 124 mmHg BP Diastolic 80 mmHg Height 59 inches 4'11" Weight 147.00 lb BMI (Body Mass Index) 29.7 kg/m2 05/31/2018 4:26pm BP Systolic 132 mmHg BP Diastolic 78 mmHg Body Temperature 97.5 F Weight 169.50 lb 03/01/2018 2:21pm BP Systolic 134 mmHg BP Diastolic 76 mmHg Height 59 inches 4'11" Weight 173.00 lb BMI (Body Mass Index) 34.9 kg/m2 Results Test Date Facility Test Result H/L Range Note CBC Auto Diff 03/15/2019 [facility] White Blood 7.9 10^3/uL N 3.5- 10.8 [phone] Count Red Blood Count 4.65 10^6/uL N 3.70-4.87 Hemoglobin 13.8 g/dL N 12.0-16.0 Hematocrit 40 % N 35-47 Mean Corpuscular Volume 87 fL N 80-97 Mean Corpuscular Hemoglobin 30 pg N 27-31 Mean Corpuscular HGB Conc 34 g/dL N 31-36 Red Cell Distribution Width 14 % N 10.5-15 Platelet Count 350 10^3/uL N 150-450 Mean Platelet Volume 7.4 fL N 7.4-10.4 Abs Neutrophils 4.5 10^3/uL N 1.5-7.7 Abs Lymphocytes 2.5 10^3/uL N 1.0-4.8 Abs Monocytes 0.7 10^3/uL N 0-0.8 Abs Eosinophils 0.1 10^3/uL N 0-0.6 Abs Basophils 0.0 10^3/uL N 0-0.2 Abs Nucleated RBC 0.1 10^3/uL Granulocyte % 57.5 % Lymphocyte % 32.0 % Monocyte % 8.3 % Eosinophil % 1.8 % Basophil % 0.4 % Nucleated Red Blood Cells % 0.6 Laboratory test 03/15/2019 [facility] TSH (Thyroid 1.12 mcIU/mL N 0.34-5.60 finding [phone] Stim Horm) CBC Auto Diff 02/24/2019 [facility] White Blood 11.8 10^3/uL High 3.5 -10.8 [phone] Count Red Blood Count 4.37 10^6/uL N 3.70-4.87 Hemoglobin 12.6 g/dL N 12.0-16.0 Hematocrit 38 % N 33-41 Mean Corpuscular Volume 87 fL N 80-97 Mean Corpuscular Hemoglobin 29 pg N 27-31 Mean Corpuscular HGB Conc 33 g/dL N 31-36 Red Cell Distribution Width 13 % N 10.5-15 Platelet Count 265 10^3/uL N 150-450 Mean Platelet Volume 7.2 fL Low 7.4-10.4 Abs Neutrophils 7.1 10^3/uL N 1.5-7.7 Abs Lymphocytes 3.5 10^3/uL N 1.0-4.8 Abs Monocytes 1.0 10^3/uL High 0-0.8 Abs Eosinophils 0 10^3/uL N 0-0.6 Abs Basophils 0 10^3/uL N 0-0.2 Abs Nucleated RBC 0 10^3/uL Granulocyte % 60.7 % Lymphocyte % 29.9 % Monocyte % 8.8 % Eosinophil % 0.4 % Basophil % 0.2 % Nucleated Red Blood Cells % 0 Laboratory test finding 02/24/2019 [facility] Lactic Acid 1.4 mmol/L N 0.5-2.0 9 [phone] Comp Metabolic Panel 02/24/2019 [facility] Sodium 140 mmol/L N 135- 145 [phone] Potassium 3.3 mmol/L Low 3.5-5.0 Chloride 106 mmol/L N 101-111 Co2 Carbon Dioxide 27 mmol/L N 22-32 Anion Gap 7 mmol/L N 2-11 Glucose 110 mg/dL High 70-100 Blood Urea Nitrogen 11 mg/dL N 6-24 Creatinine 0.80 mg/dL N 0.51-0.95 BUN/Creatinine Ratio 13.8 N 8-20 Calcium 9.1 mg/dL N 8.6-10.3 Total Protein 6.9 g/dL N 6.4-8.9 Albumin 4.1 g/dL N 3.2-5.2 Globulin 2.8 g/dL N 2-4 Albumin/Globulin Ratio 1.5 N 1-3 Total Bilirubin 0.40 mg/dL N 0.2-1.0 Alkaline Phosphatase 71 U/L N 34-104 Alt 10 U/L N 7-52 Ast 12 U/L Low 13-39 Egfr Non- 88.1 >60 Egfr 106.6 >60 2 Laboratory test finding 02/24/2019 [facility] Lipase 27 U/L N 11.0- 82.0 [phone] C Reactive Protein 35.93 mg/L High <8.01 Urinalysis Profile 02/24/2019 [facility] Urine Color Yellow [phone] Urine Appearance Cloudy Urine Specific [place] 1.024 N 1.010-1.030 Urine pH 5.0 N 5-9 Urine Urobilinogen Negative Negative Urine Ketones Trace Abnormal Negative Urine Protein Negative Negative Urine Leukocytes Negative Negative Urine Blood Negative Negative Urine Nitrite Negative Negative Urine Bilirubin Negative Negative Urine Glucose Negative Negative Laboratory test 02/24/2019 [facility] Blood Culture SEE RESULT 3 finding [phone] BELOW CBC Auto Diff 02/23/2019 [facility] White Blood 12.1 10^3/uL High 3.5 -10. [phone] Count 8 Red Blood Count 4.74 10^6/uL N 3.70-4.87 Hemoglobin 13.7 g/dL N 12.0-16.0 Hematocrit 41 % N 33-41 Mean Corpuscular Volume 86 fL N 80-97 Mean Corpuscular Hemoglobin 29 pg N 27-31 Mean Corpuscular HGB Conc 34 g/dL N 31-36 Red Cell Distribution Width 13 % N 10.5-15 Platelet Count 278 10^3/uL N 150-450 Mean Platelet Volume 6.9 fL Low 7.4-10.4 Abs Neutrophils 8.8 10^3/uL High 1.5-7.7 Abs Lymphocytes 2.1 10^3/uL N 1.0-4.8 Abs Monocytes 1.1 10^3/uL High 0-0.8 Abs Eosinophils 0 10^3/uL N 0-0.6 Abs Basophils 0 10^3/uL N 0-0.2 Abs Nucleated RBC 0 10^3/uL Granulocyte % 73.2 % Lymphocyte % 17.3 % Monocyte % 9.0 % Eosinophil % 0.2 % Basophil % 0.3 % Nucleated Red Blood Cells % 0 Laboratory test finding 02/23/2019 [facility] Lactic Acid 0.6 mmol/L N 0.5-2.0 4 [phone] Comp Metabolic Panel 02/23/2019 [facility] Sodium 136 mmol/L N 135- 145 [phone] Potassium 3.7 mmol/L N 3.5-5.0 Chloride 106 mmol/L N 101-111 Co2 Carbon Dioxide 25 mmol/L N 22-32 Anion Gap 5 mmol/L N 2-11 Glucose 97 mg/dL N 70-100 Blood Urea Nitrogen 11 mg/dL N 6-24 Creatinine 0.61 mg/dL N 0.51-0.95 BUN/Creatinine Ratio 18.0 N 8-20 Calcium 9.1 mg/dL N 8.6-10.3 Total Protein 6.9 g/dL N 6.4-8.9 Albumin 4.2 g/dL N 3.2-5.2 Globulin 2.7 g/dL N 2-4 Albumin/Globulin Ratio 1.6 N 1-3 Total Bilirubin 0.50 mg/dL N 0.2-1.0 Alkaline Phosphatase 75 U/L N 34-104 Alt 11 U/L N 7-52 Ast 14 U/L N 13-39 Egfr Non- 120.5 >60 Egfr 145.8 >60 5 Laboratory test finding 02/23/2019 [facility] Magnesium 1.9 mg/dL N 1.9-2.7 [phone] Lipase 12 U/L N 11.0-82.0 C Reactive Protein 9.78 mg/L High <8.01 HCG < 0.60 mIU/mL 6 Urinalysis Profile 02/23/2019 [facility] Urine Color Yellow [phone] Urine Appearance Clear Urine Specific [place] 1.013 N 1.010-1.030 Urine pH 7.0 N 5-9 Urine Urobilinogen Negative Negative Urine Ketones Trace Abnormal Negative Urine Protein Negative Negative Urine Leukocytes Negative Negative Urine Blood Negative Negative Urine Nitrite Negative Negative Urine Bilirubin Negative Negative Urine Glucose Negative Negative CBC Auto Diff 11/04/2018 [facility] White Blood Count 7.6 10^3/uL N 3.5-10.8 [phone] Red Blood Count 4.85 10^6/uL N 4.00-5.40 Hemoglobin 14.0 g/dL N 12.0-16.0 Hematocrit 42 % N 35-47 Mean Corpuscular Volume 86 fL N 80-97 Mean Corpuscular Hemoglobin 29 pg N 27-31 Mean Corpuscular HGB Conc 34 g/dL N 31-36 Red Cell Distribution Width 14 % N 10.5-15 Platelet Count 367 10^3/uL N 150-450 Mean Platelet Volume 6.8 fL Low 7.4-10.4 Abs Neutrophils 4.9 10^3/uL N 1.5-7.7 Abs Lymphocytes 1.9 10^3/uL N 1.0-4.8 Abs Monocytes 0.7 10^3/uL N 0-0.8 Abs Eosinophils 0.1 10^3/uL N 0-0.6 Abs Basophils 0 10^3/uL N 0-0.2 Abs Nucleated RBC 0 10^3/uL Granulocyte % 64.7 % Lymphocyte % 24.9 % Monocyte % 9.4 % Eosinophil % 0.7 % Basophil % 0.3 % Nucleated Red Blood Cells % 0 Laboratory test 11/04/2018 [facility] HCG 94375.00 mIU/mL 7 finding [phone] Comp Metabolic 11/04/2018 [facility] Sodium 136 mmol/L N 135-145 Panel [phone] Potassium 4.1 mmol/L N 3.5-5.0 Chloride 105 mmol/L N 101-111 Co2 Carbon Dioxide 25 mmol/L N 22-32 Anion Gap 6 mmol/L N 2-11 Glucose 94 mg/dL N 70-100 Blood Urea Nitrogen 13 mg/dL N 6-24 Creatinine 0.73 mg/dL N 0.51-0.95 BUN/Creatinine Ratio 17.8 N 8-20 Calcium 9.4 mg/dL N 8.6-10.3 Total Protein 7.3 g/dL N 6.4-8.9 Albumin 4.4 g/dL N 3.2-5.2 Globulin 2.9 g/dL N 2-4 Albumin/Globulin Ratio 1.5 N 1-3 Total Bilirubin 0.50 mg/dL N 0.2-1.0 Alkaline Phosphatase 64 U/L N 34-104 Alt 12 U/L N 7-52 Ast 13 U/L N 13-39 Egfr Non- 97.9 >60 Egfr 118.5 >60 8 CSF Culture & 05/27/2018 [facility] CSF Culture SEE RESULT BELOW 9 Sensitivity [phone] Gram Stain CSF Cell Count 05/27/2018 [facility] Body Fluid Cerebral Spinal [phone] Source Body Fluid Appearance Clear Body Fluid Color Colorless CSF Tube # 4 Body Fluid Volume 1.5 mL Body Fluid WBC 0 /mcL Body Fluid RBC 0 /mcL Body Fluid Lymph 100 % Body Fluid Total Cells Counted 6 Fluid Reviewed By MD (SEE NOTE) 10 Lyme Disease PCR 05/27/2018 [facility] Lyme Disease Source CSF Tissue/Fluid [phone] B. burgdorferi PCR Negative Negative B. mayonii PCR Negative Negative B. garinii/B. afzellii PCR Negative Negative Lyme CSF Comment See Comment 11 Rapid Influenza A 05/27/2018 [facility] Influenza A NEGATIVE Negative 12 & B Molecular [phone] Molecular Influenza B Molecular NEGATIVE Negative Laboratory test 05/27/2018 [facility] Rapid Influenza SEE RESULT 13 finding [phone] A B Antigen BELOW Basic Metabolic 05/27/2018 [facility] Sodium 137 mmol/L N 135-145 Panel [phone] Potassium 3.3 mmol/L Low 3.5-5.0 Chloride 101 mmol/L N 101-111 Co2 Carbon Dioxide 26 mmol/L N 22-32 Anion Gap 10 mmol/L N 2-11 Glucose 101 mg/dL High 70-100 Blood Urea Nitrogen 8 mg/dL N 6-24 Creatinine 0.75 mg/dL N 0.51-0.95 BUN/Creatinine Ratio 10.7 N 8-20 Calcium 9.7 mg/dL N 8.6-10.3 Egfr Non- 94.9 >60 Egfr 114.9 >60 14 CBC Auto Diff 05/27/2018 [facility] White Blood 12.7 10^3/uL High 3.5 -10.8 [phone] Count Red Blood Count 4.82 10^6/uL N 4.00-5.40 Hemoglobin 13.8 g/dL N 12.0-16.0 Hematocrit 41 % N 35-47 Mean Corpuscular Volume 84 fL N 80-97 Mean Corpuscular Hemoglobin 29 pg N 27-31 Mean Corpuscular HGB Conc 34 g/dL N 31-36 Red Cell Distribution Width 13 % N 10.5-15 Platelet Count 367 10^3/uL N 150-450 Mean Platelet Volume 7.1 um3 Low 7.4-10.4 Abs Neutrophils 9.8 10^3/uL High 1.5-7.7 Abs Lymphocytes 2.1 10^3/uL N 1.0-4.8 Abs Monocytes 0.8 10^3/uL N 0-0.8 Abs Eosinophils 0 10^3/uL N 0-0.6 Abs Basophils 0 10^3/uL N 0-0.2 Abs Nucleated RBC 0 10^3/uL Granulocyte % 76.9 % N 38-83 Lymphocyte % 16.6 % Low 25-47 Monocyte % 5.9 % N 0-7 Eosinophil % 0.4 % N 0-6 Basophil % 0.2 % N 0-2 Nucleated Red Blood Cells % 0.1 Urinalysis Profile 05/27/2018 [facility] Urine Color Yellow [phone] Urine Appearance Cloudy Urine Specific [place] 1.021 N 1.010-1.030 Urine pH 6.0 N 5-9 Urine Urobilinogen Negative Negative Urine Ketones 1+ Abnormal Negative Urine Protein Negative Negative Urine Leukocytes Negative Negative Urine Blood Negative Negative Urine Nitrite Negative Negative Urine Bilirubin Negative Negative Urine Glucose Negative Negative Laboratory test 05/27/2018 [facility] Lyme Disease Negative Negative 15 finding [phone] Serology Laboratory test 05/27/2018 [facility] CSF Glucose 57 mg/dL N 40-70 finding [phone] CSF Total Protein 26 mg/dL N 15-45 CBC Auto Diff 03/08/2018 [facility] White Blood Count 7.8 10^3/uL N 3.5-10.8 [phone] Red Blood Count 4.56 10^6/uL N 4.0-5.4 Hemoglobin 13.2 g/dL N 12.0-16.0 Hematocrit 39 % N 35-47 Mean Corpuscular Volume 85 fL N 80-97 Mean Corpuscular Hemoglobin 29 pg N 27-31 Mean Corpuscular HGB Conc 34 g/dL N 31-36 Red Cell Distribution Width 13 % N 10.5-15 Platelet Count 335 10^3/uL N 150-450 Mean Platelet Volume 7.2 um3 Low 7.4-10.4 Abs Neutrophils 4.4 10^3/uL N 1.5-7.7 Abs Lymphocytes 2.6 10^3/uL N 1.0-4.8 Abs Monocytes 0.7 10^3/uL N 0-0.8 Abs Eosinophils 0.1 10^3/uL N 0-0.6 Abs Basophils 0 10^3/uL N 0-0.2 Abs Nucleated RBC 0 10^3/uL Granulocyte % 56.6 % N 38-83 Lymphocyte % 33.2 % N 25-47 Monocyte % 8.6 % High 0-7 Eosinophil % 1.3 % N 0-6 Basophil % 0.3 % N 0-2 Nucleated Red Blood Cells % 0 Laboratory test 03/08/2018 [facility] TSH (Thyroid 0.74 mcIU/mL N 0.34-5.60 finding [phone] Stim Horm) 1 [facility] Severe Sepsis and Septic Shock Management Bundle Measure requires all lactic acids initially measuring >2.0 mmol/L be repeated. 2 Because ethnic data is not always readily available, this report includes an eGFR for both -Americans and non- Americans. The National Kidney Disease Education Program (NKDEP) does not endorse the use of the MDRD equation for patients that are not between the ages of 18 and 70, are , have extremes of body size, muscle mass, or nutritional status, or are non- or non-. According to the National Kidney Foundation, irrespective of diagnosis, the stage of the disease is based on the level of kidney function: Stage Description GFR(mL/min/1.73 m(2)) 1 Kidney damage with normal or decreased GFR 90 2 Kidney damage with mild decrease in GFR 60-89 3 Moderate decrease in GFR 30-59 4 Severe decrease in GFR 15-29 5 Kidney failure <15 (or dialysis) 3 SEE RESULT BELOW Name: DONI NAZARIO : [address]: Rahul Pereyra MD Acct: [id number] Unit: [id number] AGE: 23 Location: ED Re02/24/19 SEX: F Status: DEP ER SPEC: [id number] REMEDIOS: 02/24/[address] [facility] [address]: Rahul Pereyra MD REQ: [id number] RECD: 02/24/19 STATUS: SNEHA TELLEZ DR: Caitlin BARRON _ SOURCE: BLOOD,VENO SPDESC: ORDERED: Blood Cult Procedure Result Reported Site Aerobic Culture Bottle Final 03/01/19- 1909 ML No Growth Day 5 Anaerobic Culture Bottle Final 03/01/19- 1909 ML No Growth Day 5 * ML - Main Lab . END OF REPORT DEPARTMENT OF PATHOLOGY, [address] [place] [address] Giovanny Giraldo M.D. Director [facility] # [id number] 4 [facility] Severe Sepsis and Septic Shock Management Bundle Measure requires all lactic acids initially measuring >2.0 mmol/L be repeated. 5 Because ethnic data is not always readily available, this report includes an eGFR for both -Americans and non- Americans. The National Kidney Disease Education Program (NKDEP) does not endorse the use of the MDRD equation for patients that are not between the ages of 18 and 70, are , have extremes of body size, muscle mass, or nutritional status, or are non- or non-. According to the National Kidney Foundation, irrespective of diagnosis, the stage of the disease is based on the level of kidney function: Stage Description GFR(mL/min/1.73 m(2)) 1 Kidney damage with normal or decreased GFR 90 2 Kidney damage with mild decrease in GFR 60-89 3 Moderate decrease in GFR 30-59 4 Severe decrease in GFR 15-29 5 Kidney failure <15 (or dialysis) 6 <5.0 Negative 5.0 - 25.0 Indeterminate (Repeat testing recommended after 72 hours) >25.0 Positive Perimenopausal women can display HCG levels of up to 20 mIU/mL 7 <5.0 Negative 5.0 - 25.0 Indeterminate (Repeat testing recommended after 72 hours) >25.0 Positive Perimenopausal women can display HCG levels of up to 20 mIU/mL 8 Because ethnic data is not always readily available, this report includes an eGFR for both -Americans and non- Americans. The National Kidney Disease Education Program (NKDEP) does not endorse the use of the MDRD equation for patients that are not between the ages of 18 and 70, are , have extremes of body size, muscle mass, or nutritional status, or are non- or non-. According to the National Kidney Foundation, irrespective of diagnosis, the stage of the disease is based on the level of kidney function: Stage Description GFR(mL/min/1.73 m(2)) 1 Kidney damage with normal or decreased GFR 90 2 Kidney damage with mild decrease in GFR 60-89 3 Moderate decrease in GFR 30-59 4 Severe decrease in GFR 15-29 5 Kidney failure <15 (or dialysis) 9 SEE RESULT BELOW Name: DONI NAZARIO : [address]: James Yepez MD Acct: [id number] Unit: [id number] AGE: 23 Location: ED Re05/27/18 SEX: F Status: DEP ER SPEC: [id number] REMEDIOS: 05/27/[address]: James Yepez MD REQ: [id number] RECD: 05/27/18 STATUS: SNEHA TELLEZ DR: Caitlin BARRON _ SOURCE: CSF SPDESC: ORDERED: CSF Cult/GS Procedure Result Reported Site CSF Gram Stain Final 05/27/18- 180 ML No Neutrophils Observed No Organisms Seen Preparation By Cytospin Smear CSF Culture Final 05/31/18- 932 ML No Growth Day 4 * ML - Main Lab . END OF REPORT DEPARTMENT OF PATHOLOGY, [address] [place] [address] Giovanny Giraldo M.D. Director [facility] # [id number] 10 No evidence of an acute inflammatory response. No evidence of malignancy. Reviewed by Rosa Ventura MD 11 If clinical features of illness are highly indicative of Lyme neuroborreliosis, additional serological testing would be recommended. ADDITIONAL INFORMATION This test was developed and its performance characteristics determined by [facility] in a manner consistent with CLIA requirements. This test has not been cleared or approved by the U.S. Food and Drug Administration. Test Performed by: [facility] - [address] [address] 12 Bag Presser: [id number] 13 SEE RESULT BELOW Name: DONI NAZARIO : [address]: James Yepez MD Acct: [id number] Unit: [id number] AGE: 23 Location: ED Re05/27/18 SEX: F Status: REG ER SPEC: [id number] REMEDIOS: 05/27/[address]: James Yepez MD REQ: [id number] RECD: 05/27/18 STATUS: SNEHA TELLEZ DR: Caitlin BARRON _ SOURCE: NASAL SPDESC: ORDERED: Flu A B Request Procedure Result Reported Site Rapid Influenza A B Request Final 05/27/18- 1629 ML Specimen received for Influenza A/B Molecular testing * ML - Main Lab . END OF REPORT DEPARTMENT OF PATHOLOGY, [address] [place] [address] Giovanny Giraldo M.D. Director [facility] # [id number] 14 Because ethnic data is not always readily available, this report includes an eGFR for both -Americans and non- Americans. The National Kidney Disease Education Program (NKDEP) does not endorse the use of the MDRD equation for patients that are not between the ages of 18 and 70, are , have extremes of body size, muscle mass, or nutritional status, or are non- or non-. According to the National Kidney Foundation, irrespective of diagnosis, the stage of the disease is based on the level of kidney function: Stage Description GFR(mL/min/1.73 m(2)) 1 Kidney damage with normal or decreased GFR 90 2 Kidney damage with mild decrease in GFR 60-89 3 Moderate decrease in GFR 30-59 4 Severe decrease in GFR 15-29 5 Kidney failure <15 (or dialysis) 15 No evidence of antibodies to B. burgdorferi detected. False negative results may occur in recently infected patients (<=2 weeks) due to low or undetectable antibody levels to B. burgdorferi. If recent exposure is suspected, a second sample should be collected and tested in 2-4 weeks. Test Performed by: [facility] [address] [place] [address] Procedures Date Code Description Status 01/08/2019 05739 Electrocardiogram Complete Completed 11/29/2018 24017 Brief Emotional/Behav Assessment W/ Scoring Doc Per Completed Standard Inst Encounters Type Date Location Provider Dx Diagnosis Office Visit 04/03/2019 Main Office Ilana Barros.23 Adjustment disorder 10:20a P.A. with mixed anxiety and depressed mood L70.0 Acne vulgaris Office Visit 03/22/2019 11:40a Main Office Allen Barros3.23 Adjustment disorder P.A. with mixed anxiety and depressed mood Office Visit 03/15/2019 1:00p Main Office Allen Barros3.23 Adjustment disorder P.A. with mixed anxiety and depressed mood Office Visit 01/08/2019 9:20a Main Office Caitlin Timmons, R42 Dizziness and P.A. giddiness F43.23 Adjustment disorder with mixed anxiety and depressed mood Z63.0 Problems in relationship with spouse or partner I95.1 Orthostatic hypotension Z79.899 Other long term care pharmacist (current) drug therapy Office Visit 11/29/2018 3:40p Main Office Allen Barros3.23 Adjustment disorder P.A. with mixed anxiety and depressed mood Z13.31 Encounter for screening for depression Z63.0 Problems in relationship with spouse or partner Office Visit 05/31/2018 4:00p Main Office Richy Barros R51 Headache J01.90 Acute sinusitis, unspecified H65.00 Acute serous otitis media, unspecified ear B34.9 Viral infection, unspecified Office Visit 03/01/2018 2:00p Main Office Caitlin Timmons F41.9 Anxiety disorder, P.A. unspecified R63.5 Abnormal weight gain Z71.3 Dietary counseling and surveillance Plan of Treatment Future Appointment(s):04/15/2019 11:20 am - [facility]y [id number] - Richy [id number] Adjustment disorder with mixed anxiety and depressed moodNew Medication:Clonazepam 0.5 mg - 1/2 to one tablet by mouth for anxiety up to 2 times a dayFollow up:contact us in the next week to let us know how things are going
--- NOTE | 2019-04-30 11:35 | ED ---
HPI Chest Pain - HPI Summary HPI Summary: Pt is a 24 y/o F presenting to the ED with a chief complaint of chest pain onset at approx. 10:30am. She has been here before for chest pain that came on at work about 1 month ago, with associated tachycardia. She also reports lightheadedness on changing positions since December of this year. She sees Dr. Pineda but has had to reschedule her lab work and ECHO appointments. Currently, her chest pain is L anterior and radiates to the L shoulder, described as sharp and intermittent in severity, currently at 6-7/10. Her L arm is numb with more numbness in her fingers. It progressively got worse this morning, to the point where she dropped a cup that she was holding with her L hand, which is her dominant hand. She notes L lateral calf pain of unknown duration, and mild abd soreness in the RLQ where her appendectomy took place a few weeks ago. She denies HOLGUIN, dizziness, visual changes, impaired speech, gait disturbance, neck pain, SOB, cough, nausea, vomiting, or urinary sx. Fhx includes her aunt passing from cardiac disease at 27y/o, DVT in her mom, and leukemia and CVA in her younger brother at the age of 9. LNMP 2017, she has the Mirena. A1. Hx appendectomy 02/2019 and C- section in 2015. Home Medications Medication Instructions Recorded Confirmed Type busPIRone TAB* [Buspar TAB*] 5 mg PO BID 04/04/19 04/30/19 History Escitalopram * [Lexapro 5 mg (NF)] 5 mg PO DAILY 04/30/19 04/30/19 History buPROPion SR TAB* [Wellbutrin SR 150 mg PO BID 04/30/19 04/30/19 History TAB*] clonazePAM TAB(*) [KlonoPIN TAB(*)] 0.5 mg PO BID 04/30/19 04/30/19 History - History of Current Complaint Chief Complaint: EDChestPainROMI Time Seen by Provider: 04/30/19 10:52 Hx Obtained From: Patient Hx Last Menstrual Period: 2017, has Mirena Onset/Duration: Started Minutes Ago, Still Present Timing: Constant, Lasting Minutes Initial Severity: Moderate Current Severity: Moderate Pain Intensity: 6 Pain Scale Used: 0-10 Numeric Chest Pain Location: Left Anterior Chest Pain Radiates: Yes Chest Pain Radiates To:: Shoulder Character: Sharp/Stabbing Aggravating Factor(s): Nothing Alleviating Factor(s): Nothing Associated Signs and Symptoms: Positive: Chest Pain, Numbness, Lightheadedness, Abdominal Pain, Calf Pain/Swelling. Negative: Vision Changes, Headaches, Dizziness, Shortness of Breath, Nausea, Vomiting, Edema - Allergy/Home Medications Allergies/Adverse Reactions: Allergies Allergy/AdvReac Type Severity Reaction Status Date / Time adhesive tape Allergy Rash Verified 04/30/19 10:51 azithromycin Allergy Swelling Verified 04/30/19 10:51 Home Medications: Home Medications Escitalopram * [Lexapro 5 mg (NF)] 5 mg PO DAILY 04/30/19 [History Confirmed ] buPROPion SR TAB* [Wellbutrin SR TAB*] 150 mg PO BID 04/30/19 [History Confirmed 04/30/19] clonazePAM TAB(*) [KlonoPIN TAB(*)] 0.5 mg PO BID 04/30/19 [History Confirmed ] National Institutes Of Health - NIH Scale Level of Consciousness: Alert/Keenly Responsive Ask Patient the Month and His/Her Age: Both Correct 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 Non-Paretic Hand: Both Correctly Best Gaze (Only Horizontal Eye Movement): Normal Visual Field Testing: No Visual Loss Facial Paresis-Pt to Smile & Close Eyes or Grimace Symmetry: Normal/Symmetrical Motor Function - Right Arm: No Drift-Holds 10 Seconds Motor Function - Left Arm: No Drift-Holds 10 Seconds Motor Function - Right Leg: No Drift-Holds 10 Seconds Motor Function - Left Leg: No Drift-Holds 10 Seconds Limb Ataxia-Must be out of Proportion to Weakness Present: Absent Sensory (Use Pinprick to Test Arms/Legs/Trunk/Face): Normal Best Language (Describe Picture, Name Items): No Aphasia Dysarthria (Read Several Words): Normal Extinction and Inattention: No Abnormality Total Score: 0 PMH/Surg Hx/FS Hx/Imm Hx Previously Healthy: No Endocrine/Hematology History: Denies: Hx Diabetes, Hx Systemic Lupus Erythematosus, Hx Thyroid Disease Cardiovascular History: Reports: Other Cardiovascular Problems/Disorders - tachycardia Denies: Hx Hypercholesterolemia, Hx Hypertension Respiratory History: Reports: Hx Asthma Denies: Hx Chronic Obstructive Pulmonary Disease (COPD) GI History: Denies: Hx Ulcer History: Denies: Hx Renal Disease Neurological History: Reports: Hx Headaches Denies: Hx CVA, Hx Developmental Delay, Hx Transient Ischemic Attacks (TIA) Psychiatric History: Reports: Hx Anxiety, Hx Depression - Surgical History Surgical History: Yes Surgery Procedure, Year, and Place: Appendectomy 02/23/19. C section Infectious Disease History: No Infectious Disease History: Denies: Hx Hepatitis, Hx Human Immunodeficiency Virus (HIV), History Other Infectious Disease, Traveled Outside the [place] in Last 30 Days - Family History Known Family History: Positive: Cardiac Disease, Diabetes, Other - DVT, Leukemia , cva - Social History Occupation: Employed Full-time - 2 jobs; works on [employer] and at [employer] Lives: With Family Alcohol Use: Occasionally Hx Substance Use: No Substance Use Type: Reports: None Hx Tobacco Use: No Smoking Status (MU): Never Smoked Tobacco Have You Smoked in the Last Year: No Review of Systems Constitutional: Negative Eyes: Negative Negative: Other - neck pain Positive: Chest Pain Negative: Shortness Of Breath Positive: Abdominal Pain. Negative: Vomiting, Nausea Positive: no symptoms reported Positive: Myalgia - L calf pain Skin: Negative Neurological: Other - lightheadedness Positive: Numbness. Negative: Headache, Slurred Speech Psychological: Normal All Other Systems Reviewed And Are Negative: Yes Physical Exam - Summary Physical Exam Summary: Appearance: Ill-appearing, moderate pain distress, well-nourished Skin: Warm, color reflects adequate perfusion, dry Head: Normal Head/Face inspection, atraumatic Eyes: Conjunctiva clear, PERRL, EOMI, no nystagmus ENT: Normal inspection Neck: Supple, no nodes, no JVD Respiratory: Lungs clear, normal breath sounds, no respiratory distress Cardio: RRR, No murmur, pulses normal, brisk capillary refill, chest pain is not reproducible Abdomen: Soft, mild RLQ tenderness where at appendectomy scar is, nondistended Bowel sounds: Present Musculoskeletal: Strength Intact/ROM intact, tender Left lateral calf, no edema. Psychological: Normal Neuro: Alert, muscle tone normal, no focal deficit. A&O x3, CN II-XII intact, motor function 5/5, sensation intact, cerebellar normal, GCS 15, NIH 0 Triage Information Reviewed: Yes Vital Signs On Initial Exam: Initial Vitals Temp Pulse Resp BP Pulse Ox 98.3 F 90 18 137/84 100 04/30/19 10:52 04/30/19 10:52 04/30/19 10:52 04/30/19 10:52 04/30/19 10:52 Vital Signs Reviewed: Yes Diagnostics - Vital Signs Vital Signs Temp Pulse Resp BP Pulse Ox 04/30/19 10:52 98.3 F 90 18 137/84 100 - Laboratory Result Diagrams: 04/30/19 11:32 04/30/19 11:32 Lab Statement: Any lab studies that have been ordered have been reviewed, and results considered in the medical decision making process. - Radiology CXR Radiology Interpretation Completed By: Radiologist Summary of Radiographic Findings: No active cardiopulmonary disease is noted. ED physician has reviewed this report. - Ultrasound Venous Doppler Study Ultrasound Interpretation Completed By: Radiologist Summary of Ultrasound Findings: No LLE DVT. ED physician has reviewed this report. - EKG 1059 Cardiac Rate: NL - 90bpm EKG Rhythm: Sinus Rhythm ST Segment: Non-Specific Ectopy: None EKG Comparison: Other - no prior to compare Summary of EKG Findings: An EKG at 1059 reveals NSR at 90bpm with nml AV/IV CT, nml QTc, and nml axis. No acute changes. Low voltage. ED MD has reviewed and interpreted this EKG. Re-Evaluation - Re-Evaluation 1st re-eval Re-Evaluation Time: 13:53 Change: Improved Comment: Pt states that her pain is down to a 2/10, and I informed her of the results. I will treat the pain with Toradol. Chest Pain Course/Dx - Course Course Of Treatment: Pt is a 24 y/o F presenting to the ED with a chief complaint of chest pain onset at approx. 10:30am. Currently, her chest pain is L anterior and radiates to the L shoulder, described as sharp and intermittent in severity, currently at 6-7/10. Her L arm is numb with more numbness in her fingers. It progressively got worse this morning, to the point where she dropped a cup that she was holding with her L hand, which is her dominant hand. She notes L lateral calf pain, and mild abd soreness in the RLQ where her appendectomy took place. She denies HOLGUIN, dizziness, visual changes, impaired speech, neck pain, SOB, nausea, vomiting, or urinary sx. LNMP 2017, she has the Mirena. A1. Hx appendectomy 02/2019 and in 2015. Pt's physical exam reveals RLQ tenderness. An EKG at 1059 reveals NSR at 90bpm with nml AV/IV CT, nml QTc, and nml axis. No acute changes. Low voltage. ED MD has reviewed and interpreted this EKG. Pt's MPV is 6.7, and her BUN/Creatinine ratio is 21.0. All other lab work is WNL. CXR shows no active cardiopulmonary disease. Venous doppler study shows no LLE DVT. As of 135, the pt states that her pain is down to a 2/10, and I informed her of the results. I will treat the pain with Toradol. Pt's first and second troponin levels are 0.00. Pt will be d/c'ed with dx of chest pain and palpitations. I discussed the results with her, and she is stable and agreeable with this plan to continue her outpatient follow up with cardiology. - Diagnoses Provider Diagnoses: Chest pain, Palpitations Discharge - Sign-Out/Discharge Documenting (check all that apply): Patient Departure Patient Received Moderate/Deep Sedation with Procedure: No - Discharge Plan Condition: Stable Disposition: HOME Patient Education Materials: Chest Pain (ED) Forms: *Work Release Referrals: Philip Pineda DO [Medical Doctor] - As Soon As Possible Caitlin Timmons PA [Primary Care Provider] - 2 Days Additional Instructions: we evaluated your chest pain today with troponin levels and a d-dimer that were negative. Your EKG was normal except for a low voltage in the precordial leads. Your chest x-ray was normal. We gave you aspirin 324mg orally while you were in the emergency room. We also gave you Toradol 30 mg IV with resolution of your pain. We tested due for a possible deep vein thrombosis due to your left leg pain by doing an ultrasound of your left leg, and there was no evidence of a deep vein thrombosis. Your thyroid value (TSH) was normal and your test was negative. The highest pulse that we captured was 106. And your blood pressure ranged from the 120s to 130s systolic. You did notice that her heart was racing once while you were in the emergency department, however we were not able to correlate what your pulse was at that time. Continue with the tests that Dr. Pineda ordered for you, and see him as soon as you can in the office. Please return to the ER if you have any new or worsening symptoms. - Billing Disposition and Condition Condition: STABLE Disposition: Home - Attestation Statements Document Initiated by Kathie: Yes Documenting Scribe: Palmira Vyas Provider For Whom Kathie is Documenting (Include Credential): Dr. Palmira Soto MD. Scribe Attestation: IPalmira, scribed for Dr. Palmira Soto MD. on 05/02/19 at 0639. Scribe Documentation Reviewed: Yes Provider Attestation: The documentation as recorded by the bernieibPalmira mendiola accurately reflects the service I personally performed and the decisions made by me, Dr. Palmira Soto MD. Status of Scribe Document: Viewed
[2019-04-30] MEDS ORDERED: Aspirin 81 mg CHEW TAB* 81 MG TAB.CHEW PO ONE (11:39)
[2019-04-30 11:45] LABS: ABS Basophils 0.1 10^3/ul (0-0.2); ABS Eosinophils 0.1 10^3/ul (0-0.6); ABS Lymphocytes 2.9 10^3/ul (1.0-4.8); ABS Monocytes 0.7 10^3/ul (0-0.8); ABS Neutrophils 4.7 10^3/ul (1.5-7.7); Eosinophil % 1.3 %; Hematocrit 41 % (35-47); Hemoglobin 13.8 g/dL (12.0-16.0); Lymphocyte % 34.3 %; Mean Corpuscular HGB Conc 34 g/dL (31-36); Mean Corpuscular Hemoglobin 30 pg (27-31); Mean Corpuscular Volume 87 fL (80-97); Mean Platelet Volume 6.7 fL (7.4-10.4); Platelet Count 329 10^3/uL (150-450); Red Blood Count 4.66 10^6 /uL (3.70-4.87); Red Cell Distribution Width 13 % (10-15); White Blood Count 8.5 10^3/uL (3.5-10.8)
[2019-04-30 11:55] LABS: Activated Partial Thrombo Time 31.4 seconds (26.0-38.0); INR 0.99 (0.82-1.09)
[2019-04-30 12:09] LABS: ALT 12 U/L (7-52); AST 15 U/L (13-39); Albumin 4.4 g/dL (3.2-5.2); Albumin/Globulin Ratio 1.5 (1-3); Alkaline Phosphatase 73 U/L (34-104); Anion Gap 7 mmol/L (2-11); Blood Urea Nitrogen 17 mg/dL (6-24); CO2 Carbon Dioxide 27 mmol/L (22-32); Calcium 9.7 mg/dL (8.6-10.3); Chloride 106 mmol/L (101-111); Creatine Kinase 67 U/L (10-223); EGFR African American 104.2 (>60); EGFR Non-African American 86.2 (>60); Globulin 2.9 g/dL (2-4); Glucose 79 mg/dL (70-100); Potassium 3.8 mmol/L (3.5-5.0); Sodium 140 mmol/L (135-145); Total Protein 7.3 g/dL (6.4-8.9)
[2019-04-30 12:13] LABS: CKMB ng/mL 1.2 ng/mL (0.6-6.3)
[2019-04-30 12:16] LABS: HCG Pregnancy < 0.60 mIU/mL
[2019-04-30 12:29] LABS: TSH (Thyroid Stimulating Horm) 0.88 mcIU/mL (0.34-5.60)
[2019-04-30 13:19] LABS: Urine Appearance Clear; Urine Bilirubin Negative (Negative); Urine Blood Negative (Negative); Urine Color Straw; Urine Glucose Negative (Negative); Urine Ketones Negative (Negative); Urine Nitrite Negative (Negative); Urine Protein Negative (Negative); Urine Specific Gravity 1.012 (1.010-1.030); Urine Urobilinogen Negative (Negative)
[2019-04-30 15:08] VITALS: BP 109/68
== END 2019-04-30 15:08 | disposition home or self-care (01) ==
LOC: ED 10:47
DX: R07.9 Chest pain, unspecified (principal); R00.2 Palpitations; R42 Dizziness and giddiness; R10.9 Unspecified abdominal pain; R60.0 Localized edema; R20.0 Anesthesia of skin
CPT/HCPCS: 36415; 71045; 80053; 81003; 82550; 82553; 83605; 83735; 84443; 84484; 84702; 85025; 85379; 85610; 85730; 93005; 99282; A9270-GY